=== PATIENT | female | born 1955 | race Caucasian/White ===

== ENCOUNTER → 2023-05-30 14:54 | Outpatient (REF) | payer MEDICARE, OTHER, SELFPAY | LOC: DHCBS MAIN 14:54 | PROVIDERS: ATTENDING PHYSICIAN Internal Medicine Interventional Cardiology; FAMILY PHYSICIAN Family Medicine | DX: I34.1 Nonrheumatic mitral (valve) prolapse (principal) | CPT/HCPCS: 93306 ==

== ENCOUNTER → 2023-08-10 10:55 | Outpatient (REF) | payer MEDICARE, OTHER, SELFPAY | LOC: HWRAD 10:55 | PROVIDERS: ATTENDING PHYSICIAN Internal Medicine Rheumatology; FAMILY PHYSICIAN Family Medicine | DX: M47.816 Spondylosis without myelopathy or radiculopathy, lumbar region (principal); M81.0 Age-related osteoporosis without current pathological fracture; R29.890 Loss of height | CPT/HCPCS: 72070; 72110 ==

== ENCOUNTER 2023-09-07 06:09 | Outpatient (RCR) | payer MEDICARE, OTHER, SELFPAY | END 2023-09-07 23:59 | disposition home or self-care (01) | LOC: RPT 06:09 | PROVIDERS: ATTENDING PHYSICIAN Internal Medicine Gastroenterology; FAMILY PHYSICIAN Family Medicine | DX: N39.41 Urge incontinence (principal); N39.3 Stress incontinence (female) (male); K59.00 Constipation, unspecified; Z73.6 Limitation of activities due to disability; M62.89 Other specified disorders of muscle; R27.8 Other lack of coordination; M62.81 Muscle weakness (generalized) | CPT/HCPCS: 97162; 97530 ==

== ENCOUNTER → 2023-09-14 06:29 | Day surgery (SDC) | payer MEDICARE, OTHER, SELFPAY | LOC: GI 06:29 | PROVIDERS: ATTENDING PHYSICIAN Internal Medicine Gastroenterology | DX: Z12.11 Encounter for screening for malignant neoplasm of colon (principal); K63.5 Polyp of colon; K64.8 Other hemorrhoids; K29.50 Unspecified chronic gastritis without bleeding; K44.9 Diaphragmatic hernia without obstruction or gangrene; K31.89 Other diseases of stomach and duodenum; R13.10 Dysphagia, unspecified | CPT/HCPCS: 45380; 43239; 88305; 88341; 88342 ==

== ENCOUNTER 2023-10-06 06:34 | Outpatient (RCR) | payer MEDICARE, OTHER, SELFPAY | END 2023-10-06 23:59 | disposition home or self-care (01) | LOC: RPT 06:34 | PROVIDERS: ATTENDING PHYSICIAN Internal Medicine Gastroenterology; FAMILY PHYSICIAN Family Medicine | DX: N39.41 Urge incontinence (principal); N39.3 Stress incontinence (female) (male); K59.00 Constipation, unspecified; Z73.6 Limitation of activities due to disability; M62.89 Other specified disorders of muscle; R27.8 Other lack of coordination; M62.81 Muscle weakness (generalized) | CPT/HCPCS: 97014; 97112; 97140; 97530 ==

== ENCOUNTER 2023-10-27 09:14 | Outpatient (RCR) | payer MEDICARE, OTHER, SELFPAY | END 2023-10-27 23:59 | disposition home or self-care (01) | LOC: RPT 09:14 | PROVIDERS: ATTENDING PHYSICIAN Internal Medicine Gastroenterology; FAMILY PHYSICIAN Family Medicine | DX: N39.41 Urge incontinence (principal); N39.3 Stress incontinence (female) (male); K59.00 Constipation, unspecified; M62.89 Other specified disorders of muscle; M62.81 Muscle weakness (generalized); R27.8 Other lack of coordination | CPT/HCPCS: 97014; 97112; 97530 ==

== ENCOUNTER 2023-12-18 15:29 | Emergency (ER) | payer MEDICARE, OTHER, SELFPAY ==
[2023-12-18 15:50] VITALS: BP 135/75
[2023-12-18 16:24] LABS: % Basophils 0.5 % (0-2); % Eosinophils 2.3 % (0-6); % Immature Granulocytes 0.3 % (0-0.5); % Lymphocytes 14.3 % (20.5-51.1); % Monocytes 8.9 % (1.7-9.3); % Neutrophils 73.7 % (42.2-75.2); Absolute Basophils 0.1 10^3/uL (0-0.2); Absolute Eosinophils 0.2 10^3/uL (0-0.7); Absolute Lymphocytes 1.3 10^3/uL (1.2-3.4); Absolute Monocytes 0.8 10^3/uL (0.1-0.6); Absolute Neutrophils 6.9 10^3/uL (1.4-6.5); Hematocrit 31.3 % (37.0-47.0); Hemoglobin 10.3 g/dL (12.0-16.0); Mean Corp Hgb Conc. 32.9 g/dL (33.0-37.0); Mean Corpuscular Hgb 27.3 pg (27.0-31.0); Mean Platelet Volume 9.1 fL (7.4-10.4); Nucleated Red Blood Cells % 0 %; Platelet Count 359 10^3/uL (130-400); Red Blood Cell Count 3.77 10^6/uL (4.20-5.40); White Blood Cell Count 9.3 10^3/uL (4.8-10.8)
[2023-12-18 16:34] LABS: ALT (SGPT) < 10 U/L (0-35); AST (SGOT) 22 U/L (14-36); Albumin 3.9 g/dl (3.5-5.0); Alkaline Phosphatase 75 U/L (38-126); Blood Urea Nitrogen 18 mg/dl (7-17); Calcium 9.5 mg/dl (8.4-10.2); Carbon Dioxide 26 mmol/L (22-30); Chloride 100 mmol/L (98-107); Glucose 123 mg/dl (70-99); Potassium 4.5 mmol/L (3.5-5.1); Sodium 137 mmol/L (135-145); Total Bilirubin 0.5 mg/dl (0.2-1.3); eGFR > 60.00
[2023-12-18] MEDS: NSS 1000 IV (17:37)
[2023-12-18] MEDS: TORADOL 15 MG IV (17:37)
[2023-12-18 17:53] LABS: Urine Albumin Negative (Neg - Trace); Urine Bilirubin Negative (Negative); Urine Character Clear (Clear); Urine Color Straw; Urine Glucose Negative (Negative); Urine Ketone Negative (Negative); Urine Leukocyte 1+ (Negative); Urine Nitrite Negative (Negative); Urine Occult Blood 3+ (Negative); Urine Specific Gravity 1.005 (<1.030); Urine Urobilinogen Negative (Neg - 1+)
--- NOTE | 2023-12-18 18:19 | ED.GENMED ---
History of Present Illness
General
Chief Complaint: Flank Pain
Source: patient, spouse and family
Exam Limitations: none
Time Seen by Provider: 12/18/23 16:43
Nursing documentation reviewed up to this point in time: agreed with
History of Present Illness
History of Present Illness:
68-year-old female past medical history of kidney stones presenting to the emergency department today with concerns of left flank pain over the past 2 weeks that was intermittent. Saw her primary care doctor and had an outpatient ultrasound ordered
that showed severe left-sided hydro with potential 0.8 cm stone to the distal ureter. She denies any fevers chest pain shortness of breath no vomiting some intermittent nausea. Pain has been fluctuating has had some ongoing the day today. Last
urologic procedure was at least 30 years ago.
Review of Systems
Review of Systems
Allergies reviewed?: Yes
All Other Systems: ROS reviewed and negative except as documented in HPI and ROS
Phy Exam
Physical Exam
Physical Exam:
GENERAL: Alert , in no apparent distress
EYE: pupils equal and reactive
NECK: Supple, no significant adenopathy.
ENT: o/p clr, mmm.
CARDIAC: Regular rate and rhythm .
LUNGS: Clear breath sounds bilaterally, no acute respiratory distress, no wheezes/rales/rhonchi
ABDOMEN: Soft, without focal tenderness, no r/g, no cvat
NEUROLOGICAL: Alert and oriented, no focal neuro deficits
SKIN: Warm and dry, skin intact.
MUSCULOSKELETAL: No edema, well perfused.
PSYCH: Normal and appropriate interaction.
Course
Orders/Labs/Results
Orders:
Orders
12/18/23 16:01
Complete Blood Count/With Diff Urgent
Comprehensive Metabolic Panel Urgent
12/18/23 17:16
0.9% Sodium Chloride 1000 ml [Nss] 1,000 ml IV BOLUS
Ketorolac [Toradol] 15 mg IV NOW STA
12/18/23 17:25
CT Abd/pel Without Iv Or Oral Urgent
Comment:
Reason For Exam: left sided stone
12/18/23 17:41
Urinalysis Reflex To Culture Urgent
Date Specimen was Collected: 12/18/23
Time Specimen was Collected: 17:15
Urine Microscopic Reflex Cult Urgent
Urine Culture Urgent
HEAVENLY Source: U
Specimen Description:
Date Specimen was Collected: 12/18/23
Time Specimen was Collected: 17:15
Abnormal Lab Results
12/18/23 12/18/23
16:01 17:41
RBC 3.77 L 10^6/uL
(4.20-5.40)
Hgb 10.3 L g/dL
(12.0-16.0)
Hct 31.3 L %
(37.0-47.0)
MCHC 32.9 L g/dL
(33.0-37.0)
Absolute Neuts (auto) 6.9 H 10^3/uL
(1.4-6.5)
Absolute Monos (auto) 0.8 H 10^3/uL
(0.1-0.6)
Lymphocytes % 14.3 L %
(20.5-51.1)
BUN 18 H mg/dl
(7-17)
Glucose 123 H mg/dl
(70-99)
Ur Occult Blood Reflex 3+ A
(Negative)
Leukocyte Esterase Rfl 1+ A
(Negative)
12/18/23 16:01
12/18/23 16:01
Vital Signs
Initial and Last Documented VS:
Initial Vital Signs
Temp Pulse Resp BP Pulse Ox
98.1 F 81 16 135/75 98
12/18/23 15:50 12/18/23 15:50 12/18/23 15:50 12/18/23 15:50 12/18/23 15:50
Last Documented Vital Signs
Temp Pulse Resp BP Pulse Ox
98.1 F 81 16 135/75 98
12/18/23 15:50 12/18/23 15:50 12/18/23 15:50 12/18/23 15:50 12/18/23 15:50
MDM/Problems Addressed
MDM/Problems Addressed:
68-year-old female presenting to the emergency flank pain over the past 2 weeks. Outpatient ultrasound showing severe left hydro and 8 mm distal ureteral stone. Upon arrival vital signs are normal. Patient afebrile and generally well-appearing no
reproducible discomfort to the abdomen and flank. Labs showing slightly elevated BUN to creatinine ratio. She was given fluids as well as Toradol for pain. Patient comfortable throughout ER stay. Case discussed with urology they recommended CT
scan for further clarification. CT scan confirming left-sided 7 mm stone with severe hydronephrosis. Labs without significant white count normal creatinine level and no evidence of urinary tract infection on the urinalysis. Case discussed with
urology they claimed that outpatient trial would be appropriate. Patient's symptoms well-controlled here return precautions given. Does appear stable for outpatient management.
*Critical Care Note
Total Time (30-74mins, 75-104mins- exclusive of procedures): Not Applicable
ED Attending Note
-
Portions of this chart may have been created with voice recognition software.� Occasional wrong word or��sound alike� substitutions may have occurred due to the inherent limitations of voice recognition software.
Discharge Plan
Departure
Patient Disposition: Home (Routine Discharge)
Date of Disposition: 12/18/23
Time of Disposition: 19:30
Patient with high blood pressure during this ER visit?: No
Condition: Good
Covid-19: Not Applicable
Discharge Problem:
Hydronephrosis with ureteral calculus
Instructions: Kidney Stones (DC), Flank Pain (DC)
Prescriptions:
New
tamsulosin [Flomax] 0.4 mg capsule
0.4 mg PO DAILY Qty: 7 0RF
Referrals:
Cisco Solis MD [Active] - Tomorrow
Tiny Howell DO [Family Provider] -
Activity Restrictions/Additional Instructions:
You came to the emergency department today with concerns of a obstructing kidney stone. Please take the prescribed Flomax once daily and pain medication at home. Please follow closely with urology. Please call the office tomorrow morning to
schedule an appointment. If symptoms are progressing or he develop any fevers at home return to the emergency department immediately for further assessment.
Interventions
Interventions:
*Risk Screen - Suicide Last Done: 12/18/23 17:45
*General Assessment Last Done: 12/18/23 17:45
*Neglect/Abuse Screening Last Done: 12/18/23 18:58
ED- Fall Risk Assessment Last Done: 12/18/23 17:45
Discharge Date and Time
Print Language: UPPER SORBIAN
[2023-12-18 18:33] LABS: Urine Red Blood Cell 0-2 /HPF (0-2)
[2023-12-18 19:56] VITALS: BP 130/70
== END 2023-12-18 19:59 | disposition home or self-care (01) ==
LOC: EMR 15:29
PROVIDERS: Physician Assistant; Student in an Organized Health Care Education/Training Program; EMERGENCY PHYSICIAN Student in an Organized Health Care Education/Training Program; FAMILY PHYSICIAN Family Medicine
DX: N13.2 Hydronephrosis with renal and ureteral calculous obstruction (principal); E07.9 Disorder of thyroid, unspecified; Z87.442 Personal history of urinary calculi; Z88.6 Allergy status to analgesic agent; Z88.0 Allergy status to penicillin
CPT/HCPCS: 99284; 96374; 96361 ×2; 74176; 76770; 80053; 81003; 81015; 85025; 87086

== ENCOUNTER 2023-12-21 06:28 | Day surgery (SDC) | payer MEDICARE, OTHER, SELFPAY ==
[2023-12-21] VITALS (7 sets, daily range): BP systolic 102–133; BP diastolic 64–76; BMI 27.5
[2023-12-21] MEDS: NORMOSOL-R/PLASMALYTE-A 1000 IV (08:56)
== END 2023-12-21 12:53 | disposition home or self-care (01) ==
LOC: SDS 06:28
PROVIDERS: ATTENDING PHYSICIAN Specialist
DX: N20.1 Calculus of ureter (principal); N28.89 Other specified disorders of kidney and ureter
CPT/HCPCS: 52354; 52356; 88305; 74018; 76000; 93005; C1894; C2617

== ENCOUNTER → 2024-01-22 08:02 | Outpatient (REF) | payer MEDICARE, OTHER, SELFPAY | LOC: HWRAD 08:02 | PROVIDERS: ATTENDING PHYSICIAN Specialist; FAMILY PHYSICIAN Family Medicine | DX: N28.89 Other specified disorders of kidney and ureter (principal) | CPT/HCPCS: 74178; Q9967 ==

== ENCOUNTER 2024-03-14 02:28 | Inpatient (IN) | payer MEDICARE, OTHER, SELFPAY ==
[2024-03-13] VITALS (8 sets, daily range): BP systolic 76–92; BP diastolic 38–58; BMI 26.7
[2024-03-13] MEDS: NSS 1000 IV ×2 (22:02→23:05)
[2024-03-13 22:13] LABS: Urine Albumin Trace (Neg - Trace); Urine Bilirubin Negative (Negative); Urine Character Clear (Clear); Urine Color Yellow; Urine Glucose Negative (Negative); Urine Ketone Negative (Negative); Urine Leukocyte Negative (Negative); Urine Nitrite Negative (Negative); Urine Occult Blood 3+ (Negative); Urine Urobilinogen Negative (Neg - 1+)
--- NOTE | 2024-03-13 22:16 | ED.GENMED ---
History of Present Illness
General
Chief Complaint: Fainting/Passed Out
Source: patient and family (daughter)
Exam Limitations: none
Time Seen by Provider: 03/13/24 21:48
History of Present Illness
History of Present Illness:
This is a 68 year old female that is brought in by ambulance with c/o lethargy and low BP. Daughter states that she had her first treatment of ECP yesterday at [facility]. States that she took an Oxycodone 10 mg at 2pm and layed down. States that at 7p,
she was not really awake but was agitated. States that she was also sweating and not forming her words. States that they got her up to the BR and she was incont of her urine. States that they called 911 as she had difficulty standing and her BP was
low when they got there. States that she has had back, hip and groin pain. States that her temp at home was 100.7 with chills. Told her family today that her heart felt like it was racing and that she has been SOB but this is ongoing. States that
her balance has been off. States that she also had some blood clots in her urine 2 days ago. Denies any abd pain, nausea, vomiting, diarrhea, headache, dizziness, urinary burning.
Past History
Past History
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
ED Past Surgical History: Urological (Left Nephrectomy ) and Other (Partial Thyroidectomy)
Social History
Tobacco: Non-smoker
Alcohol: None
Personal:
Living: with family
Review of Systems
Review of Systems
All Other Systems: ROS reviewed and negative except as documented in HPI and ROS
Constitutional: Reports fever, chills and other (Sweats)
EENT: Reports no symptoms
Respiratory: Reports trouble breathing (SOB that has been ongoing); Denies cough
Cardiac: Reports other ([place] like her heart was racing); Denies chest pain
ABD/GI: Reports no symptoms; Denies abdominal pain, nausea, vomiting or diarrhea
: Reports other (Blood clots in urine 2 days ago); Denies dysuria
Musculoskeletal: Reports no symptoms
Skin: Reports no symptoms
Neurological: Reports other (Balance was off holding on to things); Denies dizzy or headache
Psychiatric: Reports no symptoms
Phy Exam
General Physical Exam
General Presentation: no apparent distress
General age: appears stated age
General Skin: warm and dry
General Habitus: normal
General Mental: other (Lethargic. Will wake up but falls easily back to sleep)
General Hydration: dry mucous membranes
ENT Exam
ENT Exam: TM's normal, pharynx normal and neck supple
Eye Exam
Eye Exam: EOMI
Cardiovascular Exam
Cardiovascular Exam: regular rate/rhythm, no edema, no murmur and normal peripheral pulses
Pulmonary Exam
Pulmonary Exam: lungs clear, no respiratory distress, no rales, chest non tender, no crackles, no rhonchi, no wheezing and no cough
Gastrointestinal Exam
Gastrointestinal Exam: normal bowel sounds, non tender, soft, no organomegaly, no pulsatile mass and non distended
Abdominal Scars: vertical midline (With glue noted middle of incision. Clean and dry. )
Musculoskeletal Exam
Musculoskeletal Exam: full ROM and no edema
Skin Exam
Skin Exam: normal color, warm/dry, no rash and no petechia
Psychiatric Exam
Psychiatric Exam: other (Lethargic opens eye to name and will answer some questions but falls back to sleep)
Sepsis
Sepsis Screening
Sepsis Assessment: Sepsis
Sepsis Screen
Sepsis Screen: Sepsis
Date: 03/14/24
Time: 01:24
Course
Orders/Labs/Results
Orders:
Orders
03/13/24 21:35
Electrocardiogram (*1) Urgent
Reason for Study: Syncope
Cardiac Monitoring- Treatment ONCE
EKG- Treatment ONCE
03/13/24 21:37
IV Insert/Care/Rem.- Treatment PRN
O2 Therapy [RESP] Urgent
Titrate/Wean O2 to maintain O2 sat greater than (%): 93
Special Instructions: TO MAINTAIN CONTINUOUS O2 SATS > OR = 93%
Pulse Ox/cont/shift [RESP] Urgent
Quantity: 1
Special Instructions: CONTINUOUS
03/13/24 21:59
0.9% Sodium Chloride 1000 ml [Nss] 1,000 ml IV BOLUS
03/13/24 22:00
CMP [Comprehensive Metabolic Panel] Urgent
COVID-19 Antigen Urgent
Source: Nasal Swab
Complete Blood Count/With Diff Urgent
Lactic Acid Q4H
Comment: ON ICE, CANCEL 2ND ORDER IF FIRST LACTIC ACID LEVEL <2
Urinalysis Reflex To Culture Urgent
Date Specimen was Collected: 03/13/24
Time Specimen was Collected: 21:51
Urine Microscopic Reflex Cult Urgent
Blood Culture Urgent
HEAVENLY Source: Blood/Venous
Specimen Description:
Blood Culture Urgent
HEAVENLY Source: Blood/Venous
Specimen Description:
Urine Culture Urgent
HEAVENLY Source: U
Specimen Description:
Date Specimen was Collected: 03/13/24
Time Specimen was Collected: 21:51
03/13/24 22:02
Influenza A+B Rapid Molecular Urgent
HEAVENLY Source: Nasal Swab
Specimen Description:
03/13/24 22:15
Acetaminophen 1000MG/100Ml [Ofirmev] 1,000 mg in 100 ml IV ONCE
Acetaminophen IV Indication:: ED Narcotic Naive Pt-ONCE
03/13/24 22:18
CT Head W/o Iv Contrast Urgent
Comment:
Reason For Exam: Difficulty forming words
03/13/24 22:22
Acetaminophen [Tylenol] 500 mg .ROUTE .STK-MED ONE
Acetaminophen [Tylenol] 500 mg PO NOW STA
03/13/24 22:28
Troponin I Urgent
03/13/24 23:00
Flush (0.9% Sodium Chloride) [Flush (Nss)] See Dose Instructions IV PER PROTOCOL
03/13/24 23:04
0.9% Sodium Chloride 1000 ml [Nss] 1,000 ml IV BOLUS
03/13/24 23:15
Cefepime HCl [Maxipime] 2,000 mg IV NOW STA
03/13/24 23:29
NORepinephrine 4 MG/250 ML [Levophed] 4 mg in 250 ml IV NOW
Initial dose in mcg/min, then titrate:: 5
Titrate to keep:: MAP > 65 mmHg
Titrate by mcg/min:: 1-2 mcg/min
Frequency of titrations (minutes):: 5
Maximum dose in ICU in mcg/min:: 30
Maximum dose in IMU in mcg/min:: 8
Maximum dose in IVU in mcg/min:: 4
Begin to taper infusion when:: Remained at goal for 4hrs
Taper by mcg/min:: 1-2 mcg/min
Frequency of taper (minutes) if patient maintains goal:: 30
Taper to off?: Yes
If infusion off & no longer maintaining goal:: Contact Provider
03/13/24 23:30
NORepinephrine 4 MG/250 ML [Levophed] 4 mg in 250 ml .ROUTE .STK-MED
Sterile Water [Sterile Water For Injection] 20 ml .ROUTE .STK-MED
03/14/24 00:00
CR Chest - 2 Views Urgent
Reason For Exam: Fever, Sepsis
03/14/24 00:09
Oxycodone [Roxicodone] 5 mg PO NOW STA
03/14/24 00:45
CT Abd/pel Without Iv Or Oral Urgent
Reason For Exam: Flank Pain, Hematuria, Fever
03/14/24 01:45
Lactic Acid Q4H
Comment: ON ICE, CANCEL 2ND ORDER IF FIRST LACTIC ACID LEVEL <2
Abnormal Lab Results
03/13/24
22:00
WBC 44.0 H* 10^3/uL
(4.8-10.8)
RBC 3.69 L 10^6/uL
(4.20-5.40)
Hgb 9.5 L g/dL
(12.0-16.0)
Hct 31.6 L %
(37.0-47.0)
MCH 25.7 L pg
(27.0-31.0)
MCHC 30.1 L g/dL
(33.0-37.0)
RDW 16.9 H %
(11.5-14.5)
Abs Immat Gran (auto) 1.1 H 10^3/uL
(0-0.05)
Absolute Neuts (auto) 37.8 H 10^3/uL
(1.4-6.5)
Absolute Monos (auto) 2.5 H 10^3/uL
(0.1-0.6)
Immature Gran % 2.5 H %
(0-0.5)
Neutrophils % 86.0 H %
(42.2-75.2)
Lymphocytes % 4.4 L %
(20.5-51.1)
Sodium 134 L mmol/L
(135-145)
Chloride 96 L mmol/L
(98-107)
BUN 24 H mg/dl
(7-17)
Creatinine 1.4 H mg/dL
(0.6-1.0)
Calcium 11.6 H mg/dl
(8.4-10.2)
Alkaline Phosphatase 186 H U/L
(38-126)
Albumin 3.2 L g/dl
(3.5-5.0)
Ur Occult Blood Reflex 3+ A
(Negative)
Urine RBC 26-30 A /HPF
(0-2)
Urine Bacteria (Reflex) Moderate A
(Negative)
03/13/24 22:00
03/13/24 22:00
Leukocytosis ( daughter states her WBC were 51 yesterday), H/H low, Anemic, Chloride slightly low. Dehydration. Calcium slightly elevated. Alk phos elevation. Albumin low. Urine negative for infection. COVID and Influenza negative, Lactic acid 2.0
Vital Signs
Initial and Last Documented VS:
Initial Vital Signs
Temp Pulse Resp BP Pulse Ox
101.2 F H 110 18 89/58 94
03/13/24 21:40 03/13/24 21:40 03/13/24 21:40 03/13/24 21:40 03/13/24 21:40
Last Documented Vital Signs
Temp Pulse Resp BP Pulse Ox
99.4 F 83 14 95/46 92
03/13/24 23:41 03/14/24 01:00 03/14/24 01:00 03/14/24 01:00 03/14/24 01:00
Benefits Advisor consulted with Physician
Benefits Advisor consulted with physician?: Yes
Name of Physician Consulted: Dr. Livingston
MDM/Problems Addressed
Differential Diagnosis Includes:
COVID, Neutropenic fever,
MDM/Problems Addressed:
This is a 68 year old female that is brought in by ambulance with c/o fever, Lethargic and Urinary incontinence. Told that patient has her first chemo treatment yesterday at [facility].
Will check labs, give IV fluids. get urine and Tylenol for fever. .
Back into see patient and family. Explained that the patient would be admitted as her BP is to low and she was very lethargic. This may all be related to her chemo. Will start on antibiotics and admit.
Chronic conditions affecting care: Cancer
Acute Exacerbation and/or Progression of Chronic Illness: Cancer
*Radiology
Radiology exam reviewed: preliminary read by ED provider (Chest- Negative for active disease. ) and radiology read reviewed (CT head-No acute intracranial abnormality noted)
*Pulse Oximetry
Patient hypoxic: no
*EKG
Interpreted by ED Provider?: Yes
Heart Rate: 109
Rate: tachycardiac
Rhythm: sinus
[place]: normal axis
Interval: normal interval
QRS Pattern: normal QRS
Ischemia: no ischemia
*Cannoneer Interpretation
Rate: tachycardiac
Heart Rate: 100
Rhythm: sinus tachycardia
*Critical Care Note
Total Time (30-74mins, 75-104mins- exclusive of procedures): Not Applicable
ED Attending Note
-
Portions of this chart may have been created with voice recognition software.� Occasional wrong word or��sound alike� substitutions may have occurred due to the inherent limitations of voice recognition software.
Discharge Plan
Departure
Patient Disposition: Admit
Date of Disposition: 03/13/24
Time of Disposition: 23:20
Admit to: ICU
Presentation/result/management discussed w/ accepting MD/DO: Hospitalist
Patient with high blood pressure during this ER visit?: No
Condition: Good
Covid-19: Negative COVID-19
Discharge Problem:
Fever and chills, Acute hypotension, Sepsis
Prescriptions:
No Action
docusate sodium [Stool Softener] 100 mg Capsule
100 mg PO DAILYPRN PRN (Reason: constipation)
polyethylene glycol 3350 [Miralax] 17 gram/dose Powder
4 g PO DAILYPRN PRN (Reason: constipation)
oxycodone 5 mg Tablet
10 mg PO Q8HPRN PRN (Reason: moderate to severe pain)
acetaminophen 500 mg Tablet
500 mg PO Q6HPRN PRN (Reason: mild pain)
Referrals:
Tiny Howell DO [Family Provider] -
Interventions
Interventions:
*Risk Screen - Suicide Last Done: 03/13/24 21:40
*General Assessment Last Done: 03/13/24 21:40
*Neglect/Abuse Screening Last Done: 03/13/24 21:40
ED- Fall Risk Assessment Last Done: 03/13/24 23:11
*ED COVID-19 Vaccine History Last Done: 03/13/24 21:40
ED- Neurological Assessment Last Done: 03/13/24 23:11
Discharge Date and Time
Print Language: MALIAN
[2024-03-13 22:17] LABS: Hematocrit 31.6 % (37.0-47.0); Hemoglobin 9.5 g/dL (12.0-16.0); Mean Corp Hgb Conc. 30.1 g/dL (33.0-37.0); Mean Corpuscular Hgb 25.7 pg (27.0-31.0); Mean Corpuscular Volume 85.6 fL (81.0-99.0); Mean Platelet Volume 8.4 fL (7.4-10.4); Platelet Count 397 10^3/uL (130-400); Red Blood Cell Count 3.69 10^6/uL (4.20-5.40); Red Cell Dist. Width 16.9 % (11.5-14.5)
[2024-03-13 22:19] LABS: Urine Red Blood Cell 26-30 /HPF (0-2); Urine Squamous Cell 0-2 /LPF (Few)
[2024-03-13 22:20] LABS: Urine Bacteria Moderate (Negative); Urine White Cell 0-2 /HPF (0-5)
[2024-03-13] MEDS: TYLENOL 500 MG PO (22:23)
[2024-03-13 22:29] LABS: % Basophils 0.4 % (0-2); % Immature Granulocytes 2.5 % (0-0.5); % Lymphocytes 4.4 % (20.5-51.1); % Monocytes 5.7 % (1.7-9.3); Absolute Basophils 0.2 10^3/uL (0-0.2); Absolute Eosinophils 0.5 10^3/uL (0-0.7); Absolute Immature Granulocytes 1.1 10^3/uL (0-0.05); Absolute Lymphocytes 1.9 10^3/uL (1.2-3.4); Absolute Monocytes 2.5 10^3/uL (0.1-0.6); Absolute Neutrophils 37.8 10^3/uL (1.4-6.5); Nucleated Red Blood Cells % 0 %
[2024-03-13 22:32] LABS: ALT (SGPT) 18 U/L (0-35); AST (SGOT) 29 U/L (14-36); Albumin 3.2 g/dl (3.5-5.0); Alkaline Phosphatase 186 U/L (38-126); Blood Urea Nitrogen 24 mg/dl (7-17); COVID-19 Antigen Negative (Negative); Calcium 11.6 mg/dl (8.4-10.2); Carbon Dioxide 27 mmol/L (22-30); Chloride 96 mmol/L (98-107); Estimated Creatinine Clearance 35 ml/min; Glucose 76 mg/dl (70-99); Potassium 4.9 mmol/L (3.5-5.1); Sodium 134 mmol/L (135-145); Total Bilirubin 0.5 mg/dl (0.2-1.3); Total Protein 6.5 g/dl (6.3-8.2); eGFR 40.98
[2024-03-13 23:07] LABS: Troponin I < 0.012 ng/ml
--- NOTE | 2024-03-13 23:10 | EDRN ---
Patient back from CT, her BP is trending down now that fluids are completed, informed PENELOPE Bledsoe who is back in at bedside talking with patient and family, fluids hung on patient.
[2024-03-13] MEDS: LEVOPHED 250 IV (23:34)
[2024-03-13] MEDS: MAXIPIME 2000 MG IV (23:37)
[2024-03-14] VITALS (102 sets, daily range): BP systolic 77–131; BP diastolic 42–65; BMI 25.4
--- NOTE | 2024-03-14 | EDRN ---
Patient complaining of pain, it is time for her normal medications to be given she has been taking 10mg of her oxycodone, with low blood pressure, Ladi MAGAZINE SUPERVISOR concerned so will give her 5mg at this time, monitoring her BP closely and titrating
levophed appropriately.
[2024-03-14] MEDS: ROXICODONE 5 MG PO (00:11)
--- NOTE | 2024-03-14 01:26 | EDRN ---
While sleeping, patients 02 drops to 88%, placed 2L nasal canula on her.
--- NOTE | 2024-03-14 02:02 | EDRN ---
Patient resting with daughter at bedside waiting on admission
--- NOTE | 2024-03-14 02:18 | HPS.HSE ---
Family Physician
-
Family Physician: Tiny Howell
Chief Complaint
-
Lethargy, AMS
History of Present Illness
Patient is a 68y F with PMH significant for metastatic renal cell carcinoma s/p L nephrectomy and newly on chemotherapy who presents to ED for evaluation of fever, lethargy and diaphoresis. History obtained from patient and family at the
bedside. Patient was recently diagnosed with L RCC and underwent L nephrectomy at [facility] in January. She was recently started on systemic chemotherapy due to evidence of metastatic disease - specifically in the L pelvis / hip. She had her first
session of chemo yesterday (03/12/24).
Today patient was feeling well in the morning. She became tired in the afternoon and started to nap around 2 PM. She went to bed around 4 PM and fell into a deeper sleep. Family noted that her breathing seemed to change and she was very still.
Later in the afternoon patient woke agitated. She attempted to stand on her own but her legs gave out and she had to be supported by family members. She was incontinent of a large amount of urine at that time. Her speech seemed thick and she was
confused. She was profusely diaphoretic. Patient was helped to the toilet. When she sat down on the toilet she passed out / became unresponsive.
Her temperature at home was 100.8.
EMS was called and patient was brought to the ED for further evaluation.
In the ED, patient is more awake and alert. She has no recall of the above events and states that she 'woke up' here in the ED.
Daughter notes that patient's prior surgery was complicated by post-op hypotension.
At that time she was similarly diaphoretic, confused, etc.
Patient denies any recent symptoms of sore throat, cough, N/V/D, dysuria, etc.
Medical History
Past Medical History
Past Medical History: Reports Other
Additional Past Medical History:
Metastatic Renal Cell Carcinoma
Nephrolithiasis
Past Surgical History: Reports Other
Additional Past Surgical History:
Left Nephrectomy
Cystoscopies / Lithotripsy
Partial Thyroidectomy (benign mass)
Social History
Tobacco: Non-smoker
Alcohol: None
Drug: None
Family History
Family History: Other (Mother: DM, CAD, Dementia Father: Hypertension)
Allergies / Home Medications
Allergies reflects when Allergies were last updated in [employer].
Home Medications with original date entered in [employer]
Allergy/Medication List:
Allergies
Allergy/AdvReac Type Severity Reaction Status Date / Time
Penicillins Allergy Swelling Verified 03/13/24 21:51
Home Medications
acetaminophen 500 mg tablet 500 mg PO Q6HPRN PRN mild pain 03/13/24
docusate sodium 100 mg capsule (Stool Softener) 100 mg PO DAILYPRN PRN constipation 03/13/24
oxycodone 5 mg tablet 10 mg PO Q8HPRN PRN moderate to severe pain 03/13/24
polyethylene glycol 3350 17 gram/dose oral powder (Miralax) 4 g PO DAILYPRN PRN constipation 03/13/24
Review of Systems
-
History Source: Patient and Family
A 12 point ROS was completed and negative except as noted: Yes
Constitutional: Reports Fever, Fatigue, Night Sweats and Chills
EENT: Denies Sore Throat
Respiratory: Reports Trouble Breathing; Denies Cough
Cardiac: Denies Chest Pain or Palpitations
Abdomen/GI: Reports Abdominal Pain; Denies Nausea, Vomiting, Diarrhea, Bloody Stools or Black Stools
: Denies Dysuria or Frequency
Musculoskeletal: Reports Joint Pain (L groin / hip); Denies Edema
Neurological: Reports Dizzy and Weakness; Denies Headache
Psych: Denies Depression or Anxiety
Physical Exam
Vital Signs
Vital Signs
Temp Pulse Resp BP Pulse Ox
99.4 F 75 13 87/48 94
03/13/24 23:41 03/14/24 02:00 03/14/24 02:00 03/14/24 01:45 03/14/24 02:00
Physical Exam
General: Other (Pale, diaphoretic 68y F in mild distress due to pain / fatigue.)
HEENT: PERRLA and Other (Dry MM. Neck supple.)
Respiratory: Clear; No Wheezes, Rales or Rhonchi
Cardiac: S1/S2 and Regular Rhythm; No Murmur
GI: Soft and Other (Tenderness along L abdomen without rebound or guarding. Pos bowel sounds. Incisions well-healed.)
Musculoskeletal: No Clubbing, No Cyanosis and No Edema
Neuro: Other (Lethargic - but arousable. Answers questions and follows commands but falls asleep quickly when undisturbed.)
Laboratory Results
-
03/13/24 22:00
03/13/24 22:00
Laboratory Results
Lactic Acid 2.0 mmol/L (0.7-2.0) 03/13/24 22:00
Total Bilirubin 0.5 mg/dl (0.2-1.3) 03/13/24 22:00
AST 29 U/L (14-36) 03/13/24 22:00
ALT 18 U/L (0-35) 03/13/24 22:00
Alkaline Phosphatase 186 U/L (38-126) H 03/13/24 22:00
Troponin I < 0.012 ng/ml 03/13/24 22:28
Impression/Plan
-
A/P: Patient is a 68y F with PMH significant for metastatic renal cell cancer who presents to ED for evaluation of fever and change in mental status.
Shock / SIRS
- Admit to ICU for further evaluation and treatment.
- Patient presents with marked leukocytosis (was 51 yesterday per daughter - though no report of GCSF, etc as only received chemo dose yesterday as well).
- Fever, tachycardia, tachypnea.
- Hypotension without adequate response to fluids and requiring pressor support.
- No evident source of infection thus far by UA, CXR, CT A/P, etc.
- ? sepsis versus chemo effect versus primary malignancy versus TLS, etc.
- Empiric abx coverage for now pending culture data.
- Aggressive IVF support + pressors to maintain adequate perfusion.
- Follow for clinical improvement.
- Follow fever curve and monitor for any new / focal symptoms, etc.
- Water And Gas Helper and HemeOnc evaluations for additional recommendations.
PRINCESS v CKD
- SCr = 1.4 compared to prior baseline of 0.9, but this was pre-nephrectomy value.
- IVFs / restore perfusion as noted.
- Follow renal function for changes / to establish current baseline.
Hypercalcemia
- Secondary to hypovolemia v TLS v malignancy.
- IVF as noted above.
- Check Phos and Uric Acid.
- TLS less likely, but possible given disease burden.
Anemia
- Patient with persistent anemia since nephrectomy.
- Current baseline 9-10 per family.
- Follow H&H and consider transfusion if decreasing hemoglobin and / or persistent hypotension.
DVT Prophylaxis: Lovenox
Code Status: DNR
[2024-03-14 03:17] LABS: Phosphorus 3.4 mg/dl (2.5-4.5); Uric Acid 7.2 mg/dl (2.5-6.2)
[2024-03-14 05:17] LABS: AST (SGOT) 30 U/L (14-36); Albumin 2.4 g/dl (3.5-5.0); Alkaline Phosphatase 147 U/L (38-126); Blood Urea Nitrogen 23 mg/dl (7-17); Carbon Dioxide 24 mmol/L (22-30); Chloride 104 mmol/L (98-107); Estimated Creatinine Clearance 46 ml/min; Sodium 135 mmol/L (135-145); Total Bilirubin 0.5 mg/dl (0.2-1.3); Total Protein 5.3 g/dl (6.3-8.2); eGFR 54.73
[2024-03-14 05:27] LABS: ALT (SGPT) 15 U/L (0-35); Calcium 10.4 mg/dl (8.4-10.2); Glucose 102 mg/dl (70-99); Magnesium 2.3 mg/dl (1.6-2.3); Phosphorus 4.5 mg/dl (2.5-4.5)
--- NOTE | 2024-03-14 05:30 | PTCARENOTE ---
Received pt from ED nurse via bed to ICU bed [id number]. Pt on levo gtt infusing a 7mcg/min via left peripheral IV site. Pt accompanied by daughter. Pt is A&Ox3, can make needs known, and can move all 4 extremities, Pt is NSR on tele monitor, has no
edema, and +pedal pulses bilaterally. Pt on RA satting at 95% pulse ox. On auscultation pt lungs sound clear. Pt's abdomen is round w/ hypoactive BS. Purewick placed and connected to suction due to incontinent episode earlier in the day. Pt has old
midline abdominal surgical wound with left lateral lap stab sites that are scabbed and DAVID.
[2024-03-14] MEDS: NSS 1000 IV ×3 (05:36→19:21)
[2024-03-14] MEDS: VANCOCIN 540 MG IV (05:37)
[2024-03-14 05:45] LABS: TSH Reflex To Free T4 2.41 uIU/ml (0.47-4.68)
--- NOTE | 2024-03-14 06:57 | W.PN.SEPSIS ---
Sepsis
Vital Signs
Temp Pulse Resp BP Pulse Ox
99.4 F 72 19 99/50 95
03/13/24 23:41 03/14/24 05:00 03/14/24 05:00 03/14/24 05:00 03/14/24 05:00
Physical Exam
Physical Exam:
A focused exam was performed after fluid resuscitation.
Capillary Refill
Bilateral Upper Extremity:
Pieter Time: Less than 3 sec
Bilateral Lower Extremity:
Pieter Time: Less than 3 sec
Pulse Evaluation
Bilateral Radial:
Pulse Evaluation: Present
Bilateral Dorsalis Pedis:
Pulse Evaluation: Present
--- NOTE | 2024-03-14 07:20 | PTCARENOTE ---
Received pt in bed with daughter present at the bedside. Daughter is a good historian and notified me that he father is having difficulty coping and accepting diagnosis and illness. Supportive care provided. Pt awake and alert with Norepinephrine @
7mcg/min via left AC#18 protective catheter. Right AC#20g protective catheter with 09.nss @150ml/hr and vanco loading dose. +pulses, no edema. Knee-hi scd's intact. Lungs CTA, RA pulse ox 94%. Hypoactive bsx4. Pt reports last BM Monday03/11/24. She
states she takes miralax daily and a prescribed stool softener at home. Was intolerant to the prescribed stool softener. Poor appetite. She only desires water. Oral mucosa dry. Importance of good nutrition reinforced. She verbalized her
understanding. 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 She was informed of the plan of care regarding tapering and titrating Norepinephrine drip. Monitoring her symptoms of pain and antibiotic administration. Understanding verbalized by pt and
daughter. Safe environment maintained. Will continue supportive care.
--- NOTE | 2024-03-14 07:20 | PTCARENOTE ---
Received pt in bed with daughter at the bedside. She has IVF as ordered and Levophed for MAP>65. Good peripheral pulses, no edema. Lungs CTA. Pulse ox 97%. Hypoactive BSX4. [place]. 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 She was informed of the
plan of care and pain management. Safe environment maintained.
--- NOTE | 2024-03-14 07:27 | CON.ONC ---
Impression
Impression
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
TME
Hypotension
Rule out sepsis
Pain syndrome with use of opiates
Anemia
Leukocytosis
Plan
Plan
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
Await cultures
Leukocytosis is likely reactive
Evaluate for substrate insufficiency as a cause of anemia superimposed on hematuria
Patient History
History of Present Illness
Patient is a 68-year-old female with metastatic transitional cell carcinoma. She has been suffering chronic pain due to pelvic metastases for which she takes regular oxycodone code own. She received her for initial cycle of Padcev/Keytruda for
palliative control on Monday. Yesterday she became less responsive and unable to ambulate. Family describes clinical circumstances consistent with toxic metabolic encephalopathy possibly with superimposed sepsis. Unlikely that her change in
mental status was related to medications given the temporal relationship to treatment.
Past-Medical/Surgical History
Past Medical history
Cancer (Ureteral TCC with mets to Cervical/pelvic floor) and Other (Headache, Renal calculus, )
Past Surgical History: Urological (Left Nephrectomy ) and (Partial Thyroidectomy)
Social History:
Tobacco: Non-smoker
Alcohol: None
Personal:
Living: with family
Patient Medication
�Medication �Instructions �Recorded �Confirmed �Last Taken �Type
acetaminophen 500 mg tablet 500 mg PO Q6HPRN PRN mild pain 03/13/24 03/13/24 03/13/24 11:00 History
docusate sodium 100 mg capsule 100 mg PO DAILYPRN PRN constipation 03/13/24 03/13/24 Unknown History
(Stool Softener)
oxycodone 5 mg tablet 10 mg PO Q8HPRN PRN moderate to 03/13/24 03/13/24 03/13/24 14:00 History
severe pain
polyethylene glycol 3350 17 4 g PO DAILYPRN PRN constipation 03/13/24 03/13/24 03/13/24 History
gram/dose oral powder (Miralax)
Active Medications
Generic Name Dose Route Start Last Admin
Trade Name Freq PRN Reason Stop Dose Admin
Acetaminophen 650 mg 03/14/24 04:29
Acetaminophen 325 Mg Tablet PO 04/11/24 04:28
Q4HPRN PRN
Mild Pain / Temp > 101
Cefepime HCl 2,000 mg 03/14/24 22:00
Cefepime Hcl 2,000 Mg/12.5 Ml Vial IV
Q24H CHANDRA
Enoxaparin Sodium 30 mg 03/14/24 18:00
Enoxaparin Sodium 30 Mg/0.3 Ml Syringe SC 04/11/24 17:59
QPM CHANDRA
Hydromorphone HCl 0.5 mg 03/14/24 04:29
Hydromorphone 0.5 Mg/0.5 Ml Syringe IV 03/28/24 04:28
Q4HPRN PRN
Severe Pain
Norepinephrine Bitartrate 4 mg in 250 mls @ 0 mls/hr 03/14/24 04:29
Levophed IV
PER PROTOCOL CHANDRA
Protocol
Per Protocol
Vancomycin HCl 1 each/ Device 0 mls @ 0 mls/hr 03/14/24 04:29
IV
PER PROTOCOL CHANDRA
As Directed
Sodium Chloride 1,000 mls @ 150 mls/hr 03/14/24 04:29 03/14/24 05:36
Nss IV 1,000 mls
.Q6H40M CHANDRA Administration
Ondansetron HCl 4 mg 03/14/24 04:29
Ondansetron 4 Mg/2 Ml Vial IV 04/11/24 04:28
Q6HPRN PRN
nausea and vomiting
Oxycodone HCl 10 mg 03/14/24 04:29
Oxycodone 10 Mg Regular Release Tablet PO 03/28/24 04:28
Q8HPRN PRN
moderate pain
Pantoprazole Sodium 40 mg 03/14/24 08:00
Pantoprazole Sodium 40 Mg/10 Ml Vial IV 04/11/24 07:59
DAILY CHANDRA
Sodium Chloride 0 flush 03/13/24 23:00
Sodium Chloride 0.9% (Flush) Syringe IV 04/10/24 22:59
PER PROTOCOL CHANDRA
Sodium Chloride 10 ml 03/14/24 08:00
Sodium Chloride 0.9% (Preservative Free) 10 Ml Vial IV 04/11/24 07:59
DAILY CHANDRA
Sterile Water 10 ml 03/14/24 22:00
Sterile Water For Injection 10 Ml Vial IV 04/11/24 21:59
Q24H CHANDRA
Review of Systems
-
Patient continues to feel exceedingly weak and fatigued. She has had a sensation of urgency for some time. She had reported previous hematuria. Has had some episodes of diaphoresis and rigors. Otherwise no complaints other than those reported in
the HPI.
Physical Exam
-
Physical Exam
General:Pale and weak
HEENT: EOMI and dry MM
Respiratory: Clear; No Wheezes, Rales or Rhonchi
Cardiac: S1/S2 and Regular Rhythm; No Murmur
GI: Soft and Other (Tenderness along L abdomen without rebound or guarding. Pos bowel sounds. Incisions well-healed.)
Musculoskeletal: No Clubbing, No Cyanosis and No Edema
Neuro: Nonfocal able to answer questions appropriately but lethargic.
Labs
Lab Results
WBC 44.0 10^3/uL (4.8-10.8) H* 03/13/24 22:00
RBC 3.69 10^6/uL (4.20-5.40) L 03/13/24 22:00
Hgb 9.5 g/dL (12.0-16.0) L 03/13/24 22:00
Hct 31.6 % (37.0-47.0) L 03/13/24 22:00
MCV 85.6 fL (81.0-99.0) 03/13/24 22:00
MCH 25.7 pg (27.0-31.0) L 03/13/24 22:00
MCHC 30.1 g/dL (33.0-37.0) L 03/13/24 22:00
RDW 16.9 % (11.5-14.5) H 03/13/24 22:00
Plt Count 397 10^3/uL (130-400) 03/13/24 22:00
MPV 8.4 fL (7.4-10.4) 03/13/24 22:00
Abs Immat Gran (auto) 1.1 10^3/uL (0-0.05) H 03/13/24 22:00
Absolute Neuts (auto) 37.8 10^3/uL (1.4-6.5) H 03/13/24 22:00
Absolute Lymphs (auto) 1.9 10^3/uL (1.2-3.4) 03/13/24 22:00
Absolute Monos (auto) 2.5 10^3/uL (0.1-0.6) H 03/13/24 22:00
Absolute Eos (auto) 0.5 10^3/uL (0-0.7) 03/13/24 22:00
Absolute Basos (auto) 0.2 10^3/uL (0-0.2) 03/13/24 22:00
Immature Gran % 2.5 % (0-0.5) H 03/13/24 22:00
Neutrophils % 86.0 % (42.2-75.2) H 03/13/24 22:00
Lymphocytes % 4.4 % (20.5-51.1) L 03/13/24 22:00
Monocytes % 5.7 % (1.7-9.3) 03/13/24 22:00
Eosinophils % 1.0 % (0-6) 03/13/24 22:00
Basophils % 0.4 % (0-2) 03/13/24 22:00
Creatinine 1.1 mg/dL (0.6-1.0) H 03/14/24 04:34
Vital Signs
Vital Signs
Temp Pulse Resp BP Pulse Ox
99.4 F 72 19 99/50 95
03/13/24 23:41 03/14/24 05:00 03/14/24 05:00 03/14/24 05:00 03/14/24 05:00
[2024-03-14 07:28] LABS: Hematocrit 19.7 % (37.0-47.0); Mean Corp Hgb Conc. 30.5 g/dL (33.0-37.0); Mean Corpuscular Hgb 26.8 pg (27.0-31.0); Mean Corpuscular Volume 87.9 fL (81.0-99.0); Mean Platelet Volume 9.1 fL (7.4-10.4); Platelet Count 413 10^3/uL (130-400); Red Blood Cell Count 2.24 10^6/uL (4.20-5.40); Red Cell Dist. Width 17.1 % (11.5-14.5); White Blood Cell Count 50.8 10^3/uL (4.8-10.8)
[2024-03-14] MEDS: ROXICODONE 10 MG PO ×2 (07:40→17:38)
[2024-03-14] MEDS: LEVOPHED 250 IV (07:41)
[2024-03-14] MEDS: PROTONIX IV 40 MG IV (07:42)
[2024-03-14] MEDS: NSS (PRESERVATIVE FREE) 10 ML IV (07:43)
--- NOTE | 2024-03-14 08:13 | PHA.VAN.IN ---
Assessment
- Assessment
Renal Function: Unknown baseline
Plan
- Plan
Initial / Loading Dose: 2000mg - 03/14 05:37
Maintenance Regimen: dosing by level
Monitoring: random - 03/15 0600
Pharmacokinetics Vancomycin I
- -
Patient Age: 68
Patient Sex: Female
Vancomycin Day #: 1
Indication: Bacteremia
Requesting Provider: Dr. Bernabe
Pertinent Antimicrobial Allergies:
penicillins - swelling
Height / Weight:
Height 5 ft 6 in
Actual Weight 71.3 kg
Pertinent Past Medical History: Metastatic RCC s/p L nephrectomy
- Vital Signs / Lab Results
Temp Pulse Resp BP Pulse Ox
97.5 F 78 19 116/57 96
03/14/24 08:10 03/14/24 07:30 03/14/24 07:30 03/14/24 07:30 03/14/24 07:30
Lab Results - Hematology
03/13/24 03/14/24
22:00 04:34
WBC 44.0 H* 50.8 H*
Lab Results - Chemistry
03/13/24 03/14/24
22:00 04:34
BUN 24 H 23 H
Creatinine 1.4 H 1.1 H
Estimated Creat Clear 35 46
Albumin 3.2 L 2.4 L
03/13/24 03/14/24
22:00 02:54
Lactic Acid 2.0 1.0
Lab Results - Urine
03/13/24
22:00
Urine Nitrite (Reflex) Negative
Leukocyte Esterase Rfl Negative
Urine WBC (Reflex) 0-2
Ur Squamous Epith Cells 0-2
Urine Bacteria (Reflex) Moderate A
Microbiology Results
03/13/24 22:02 Influenza Types A & B (EMILY) - Final
Nasal Swab Negative for Influenza A & B, NAAT
Negative results must be combined with clinical observations
and patient history.
Nucleic Acid Amplification test (NAAT)performed on the
[employer] platform.
--- NOTE | 2024-03-14 08:32 | CON.INTV ---
Consultation
Consultation Request
Date/Time Consultation Requested: 03/14/2024428
Date/Time Consultation Performed: 03/14/2024824
Requesting Provider: Dr. Bernabe
Performing Provider: Dr. Renteria
Reason for Consultation: Shock
Medical History
-
Chief Complaint: AMS, fever, diaphoresis
History of Present Illness:
68-year-old female with a past medical history of metastatic renal cell carcinoma now on chemotherapy (started on 03/12/2024), Raynaud's phenomena, mixed hyperlipidemia, GERD, history of MVP and hiatal hernia who presents with altered mental status,
fever and diaphoresis. She was referred for a left-sided radical nephrectomy after seeing urology on 01/25/[address] Novoa after [address] urography on 01/22/2024 showed an intraluminal ureteral mass/neoplasm which was enhancing. Patient underwent
this procedure at the end of January and then was diagnosed with metastatic transitional cell carcinoma. Prior to coming to the ER she felt well but then became tired as the day started to progress and then later in the afternoon the patient became
agitated upon awakening. Her legs gave out with walking and she was incontinent of enlargement of urine at that time. She was also confused and profusely diaphoretic. She then was helped to the toilet where she passed out and became unresponsive
and 911 was called. In the ER she had no recollection of the events leading up to her ER arrival. In the ER she was febrile to 101.2 �F, tachycardic to 110, breathing at 18 breaths/minute, BP low at 89/58 and saturating 94% on room air. Labs
showed leukocytosis to 44, anemia to 9.5, serum sodium 134, creatinine 1.4, calcium 11.6, uric acid 7.2, troponin negative at <0.012, urinalysis without signs of UTI and COVID antigen negative. Initial CT head showed no acute intracranial
abnormality, and initial CXR showed left basilar subsegmental atelectasis. In the ER she was given 2 L of IVF with NS 0.9%, cefepime, oxycodone, Tylenol and started on Levophed due to continued hypotension with SBP in the 70�80s. She was
transferred to the ICU for further care and cosmetology professor services consulted for additional management/recommendations.
Patient seen and evaluated this morning. Currently on Levophed at 6mcg/min. Currently, heart rate 100, saturating 98% on 2 L/min and BP 127/57. Having left sided abd pain. Going to be transfused 2 units PRBC this AM.
PMHx: Metastatic RCC s/p chemo (first given on 03/12/2024), Raynaud's phenomenon, sleep-related leg cramps, kidney stones, mixed hyperlipidemia, GERD, history of mitral valve prolapse, hiatal hernia
PSHx: L-nephrectomy ([facility]), partial thyroidectomy, lithotripsy
Past Medical History
Past Medical History: Other (Above as per HPI)
Past Surgical History: Other (Above as per HPI)
Social History
Tobacco: Non-smoker
Alcohol: None
Drug: None
Personal:
Living: With Family
Family History
Family History: CAD (Mother), Cancer (Brother: Melanoma; Sister: Breast cancer), Diabetes (Mother), Hypertension (Father) and Other (Father: AAA)
Allergies / Home Medications
Allergies
Allergy/AdvReac Type Severity Reaction Status Date / Time
Penicillins Allergy Swelling Verified 03/13/24 21:51
Home Medications
�Medication �Instructions �Recorded �Confirmed �Last Taken �Type
acetaminophen 500 mg tablet 500 mg PO Q6HPRN PRN mild pain 03/13/24 03/13/24 03/13/24 11:00 History
docusate sodium 100 mg capsule 100 mg PO DAILYPRN PRN constipation 03/13/24 03/13/24 Unknown History
(Stool Softener)
oxycodone 5 mg tablet 10 mg PO Q8HPRN PRN moderate to 03/13/24 03/13/24 03/13/24 14:00 History
severe pain
polyethylene glycol 3350 17 4 g PO DAILYPRN PRN constipation 03/13/24 03/13/24 03/13/24 History
gram/dose oral powder (Miralax)
Review of Systems
-
History Source: Patient
All other systems: Negative unless noted
Vitals / Labs / Diagnostic Testing
Vital Signs
Temp Pulse Resp BP Pulse Ox
97.5 F 83 18 116/50 95
03/14/24 08:10 03/14/24 09:15 03/14/24 09:15 03/14/24 09:15 03/14/24 09:15
Lab Data
03/14/24 04:34
03/14/24 04:34
Microbiology
03/13/24 22:02 Nasal Swab Influenza Types A & B (EMILY) - Final
Negative for Influenza A & B, NAAT
Negative results must be combined with clinical observations
and patient history.
Nucleic Acid Amplification test (NAAT)performed on the
[employer] platform.
Diagnostic Testing:
Physical Exam
-
HEENT: Normocephalic and Anicteric
Cardiovascular: S1/S2, Rub (negative) and Peripheral Edema (negative)
Respiratory: Clear, Wheeze (negative), Rales (negative), Rhonchi (negative) and Non-Labored Respirations
GI: Soft, Non Distended, Tender (Hypogastrium) and Normal Bowel Sounds
Neurology: Awake, Alert and Tremors (negative)
Skin: Warm and Dry
General: Respiratory Distress (negative), Pain (lower abdomen), Chills (negative) and Sweats (negative)
Assessment
-
Assessment: 68-year-old female with a past medical history of metastatic renal cell carcinoma now on chemotherapy (started on 03/12/2024), Raynaud's phenomena, mixed hyperlipidemia, GERD, history of MVP and hiatal hernia who presents with altered
mental status, fever and diaphoresis. She was referred for a left-sided radical nephrectomy after seeing urology on 01/25/[address]oa after [address] urography on 01/22/2024 showed an intraluminal ureteral mass/neoplasm which was enhancing.
Patient underwent this procedure at the end of January and then was diagnosed with metastatic transitional cell carcinoma. Prior to coming to the ER she felt well but then became tired as the day started to progress and then later in the afternoon
the patient became agitated upon awakening. Her legs gave out with walking and she was incontinent of enlargement of urine at that time. She was also confused and profusely diaphoretic. She then was helped to the toilet where she passed out and
became unresponsive and 911 was called. In the ER she had no recollection of the events leading up to her ER arrival. In the ER she was febrile to 101.2 �F, tachycardic to 110, breathing at 18 breaths/minute, BP low at 89/58 and saturating 94% on
room air. Labs showed leukocytosis to 44, anemia to 9.5, serum sodium 134, creatinine 1.4, calcium 11.6, uric acid 7.2, troponin negative at <0.012, urinalysis without signs of UTI and COVID antigen negative. Initial CT head showed no acute
intracranial abnormality, and initial CXR showed left basilar subsegmental atelectasis. In the ER she was given 2 L of IVF with NS 0.9%, cefepime, oxycodone, Tylenol and started on Levophed due to continued hypotension with SBP in the 70�80s. She
was transferred to the ICU for further care and cosmetology professor services consulted for additional management/recommendations.
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
Impression:
#Shock requiring vasopressor -given her acute anemia, hemorrhagic shock is a top differential in the setting of poor PO intake prior to arrival and hypoalbuminemia
#Leukocytosis - likely reactive in the setting of above as well as newly diagnosed metastatic RCC
#Acute anemia
#Iron deficiency anemia with iron saturation 16% (ferritin levels likely high due to acute phase reactant in the setting of above)
#Thrombocytosis likely reactive
#PRINCESS (baseline creatinine 0.9)
#Hypercalcemia
#Metastatic RCC recently started on chemotherapy on 03/12/2024
#History of GERD
#History of mitral valve prolapse
#Hiatal hernia
Plan:
- Patient has CT abdomen/pelvis today and the base of the lungs do not show any acute pathology, hence this shock state is not due to a pneumonia
- CT A/P from 03/14/2024 shows mets to the spleen + omental implants with a simple fluid attenuation in the perisplenic area measuring 9.8 cm, likely a postoperative seroma with another soft tissue attenuation along the posterior aspect of the
nephrectomy bed measuring 10.8 cm likely metastatic disease versus postoperative hematoma
- Of note, patient had an MRI of the abdomen/pelvis recently at [facility] and this irregular enhancing soft tissue collection along the posterior nephrectomy that was seen at that time measured 2.3 x 5 x 7 cm and at that time was suspected to represent
metastatic/residual tumor
- Trend H/H and transfuse if needed to keep Hb>7g/dL; keep plt>20k, unless there is concern for bleeding then keep plt>50k
- Hold antiplatelet/anticoagulants for now
- Continue with vasopressors with Levophed and titrate to maintain MAP >65
- Continue with broad-spectrum antibiotics � currently on IV vancomycin/cefepime
- Follow-up blood cultures + UCx collected on 03/13/2024
- Continue with IVF maintenance fluids with NS at 0.9% currently at 150 cc/h; monitor for fluid overload and would place a stop date on the IVF to avoid this
- Administer albumin to reach goal albumin level >3g/dL
- Maintain SpO2 >90-94% with supplemental O2 as needed
- Replete electrolytes with K>4, Mg>2
- Maintain euglycemia with goal BG 140-180
- Currently on CLD --> ADAT as vasopressor requirements come down
- prn nebulized bronchodilators - not currently bronchospastic
- DVT ppx - hold chemical ppx in setting of acute anemia; Use SCDs only for now
Critical care statement: A total of 41 minutes of critical care time was provided for this patient today. This includes management of unstable vital signs, evaluation of the patient at bedside, reviewing the patient's pertinent medical records
including radiographs, microbiology, laboratory evaluations, and discussion with primary team, consultants, pharmacy, nutrition, physical therapy, case management, charge nurse, critical care nursing, and respiratory therapy.
Data:
CT Abd/Pelvis without contrast 03/14/2024:
1. Post left nephrectomy. There are multiple new soft tissue attenuation nodules inferior to the spleen which most likely represent metastases. There is interval increase in size of previously seen retroperitoneal zully metastases. There are
multiple new omental implants representing metastases.
2. Simple fluid attenuation perisplenic collection measuring up to 9.8 cm in diameter as above, most likely postoperative seroma.
3. Abnormal soft tissue attenuation along the posterior aspect of the nephrectomy bed measuring up to 10.8 cm in diameter as above, metastatic disease versus postoperative hematoma.
--- NOTE | 2024-03-14 09:00 | PTCARENOTE ---
Dr. Dailey notified of HGB 6. Updated on the events overnight. Also notified of urinary retention and straight cath for 800ml's, odoriferous jody urine.
--- NOTE | 2024-03-14 09:10 | CM ---
Patient seen at bedside with physician. Patient daughter, son and also present. Patient states that she lives with daughter, grandson and in a 2 story home. Patient with no DME at home, no past need for VN or SNF. Patient PCP is "Iván"Lynda and she uses [facility] in [place]. Patient recently started chemo with [facility]. Patient plan is to go home with no needs. 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 CM will continue
to follow for discharge planning needs.
Plan; home with VN vs home with no needs.
--- NOTE | 2024-03-14 09:13 | W.PN.HOSP.TC ---
Today's Communication/Plan
-
renew drips
consult ID
transfuse 2 units pRBC
cont abx
follow cultures
Assessment / Plan
Assessment / Plan
pt is a 68 year old female
Septic Shock--requiring pressors--unclear source--possibly urine--cont vanco/cefepime--consult ID--WBC 50K did not get GCSF--alternatively could be due to chemo reaction?--apprec heme--CXR, CT a/p pending
anemia--likely from chemo--no signs of significant bleeding--add iron, TIBC, %sat, ferritin, folate, F13--xyzedxwca 2 units pRBC
PRINCESS--creat 1.4--with IVF down to 1.1--baseline 0.9--does have some urinary retention--st cath for 800mls--consider bynum if needed
Hypercalcemia--11.6 on admission--down to 10.4--hypovolemia vs malignancy vs tumor lysis--uric acid 7.2
DVT Prophylaxis: Lovenox
Code Status: DNR
, daughter, son at bedside
Total Critical Care Time 40 minutes. I was immediately available to the patient and staff. I personally examined, reviewed labs, diagnostic images/reports, interpretations, treatment plans, discussed patient care with other providers and family
or caregivers (if patient is unable to make decisions), entered orders as appropriate and documented the medical record.
Anticipated Discharge: > 48 hours
Subjective/Interval History
-
Date of Service: March 14, 2024
pt feeling better after 800mls removed from bladder
Objective Data
-
Labs:
Laboratory Results
03/13/24 03/14/24 03/14/24
22:00 04:34 06:00
WBC 44.0 H* 50.8 H*
Hgb 9.5 L 6.0 L* D
Hct 31.6 L 19.7 L*
Plt Count 397 413 H
PT Pending
INR Pending
APTT Pending
Sodium 134 L 135
Potassium 4.9 5.0
Chloride 96 L 104
Carbon Dioxide 27 24
BUN 24 H 23 H
Creatinine 1.4 H 1.1 H
Glucose 76 102 H
Calcium 11.6 H 10.4 H
Total Bilirubin 0.5 0.5
AST 29 30
ALT 18 15
Alkaline Phosphatase 186 H 147 H
Vital Signs:
max temp for 24 hours
03/13/24
21:40
Temp 101.2 F H
Vital Signs
Temp Pulse Resp BP Pulse Ox
97.5 F 78 19 116/57 96
03/14/24 08:10 03/14/24 07:30 03/14/24 07:30 03/14/24 07:30 03/14/24 07:30
Review of Systems
-
All other systems: Reviewed and negative
Physical Exam
-
General: Well Developed, Well Nourished, No Apparent Distress and Other (pale)
HEENT: Normocephalic and Atraumatic; Negative Oxygen
Respiratory: Clear to Auscultation; Negative Wheezes or Rhonchi
Cardiac: Regular Rhythm and S1/S2; Negative Murmur
GI: Soft, Nontender, Nondistended and Normal Bowel Sounds
Musculoskeletal: No Clubbing, No Cyanosis and No Edema
Neuro: Awake and Alert
Psych: Calm
[2024-03-14 10:23] LABS: Iron 26 ug/dl (37-170)
[2024-03-14 10:26] LABS: INR 1.09; PT 14.6 Sec (11.4-14.6)
[2024-03-14 10:33] LABS: Percent Saturation 16 % (20-50); Total Iron Binding Capacity 156 ug/dl (265-497)
--- NOTE | 2024-03-14 10:39 | CON.ID ---
Consultation
-
Date/Time Consultation Requested: 03/14/2024 0913
Date/Time Consultation Performed: 03/14/2024 1015
Requesting Provider: Dr. Dailey
Performing Provider: Dr. Angelo
Reason for Consultation: Clinical sepsis
Chief Complaint / Past History
Past History
Additional Past Medical History:
Metastatic urothelial cancer with mets to cervical region and pelvic floor
Hx nephrolithiasis
Additional Past Surgical History:
Left nephrectomy (02/06/2024 @[facility])
Partial thyroidectomy
Allergy History:
Penicillins Allergy (Verified 03/13/24 21:51)
Swelling
Medications Reviewed: Yes
Current Antibiotics:
Vancomycin
Cefepime
Social History
Tobacco: Non-Smoker
Alcohol: None
Drug: None
Personal:
Living: With Family
Employment: Retired
Family History
Family History: Not Pertinent
Review of Systems
Vital Signs
Temp Pulse Resp BP Pulse Ox
97.5 F 83 18 116/50 95
03/14/24 08:10 03/14/24 09:15 03/14/24 09:15 03/14/24 09:15 03/14/24 09:15
Physical Exam
Physical Exam
Constitutional: Comfortable, Acutely Ill and Non-toxic
Head: Normocephalic
Eyes: Pupils Equal, Pupils Round, No Conjunctival Hemorrhage and Sclera Anicteric
Oral: No Thrush and No Ulcers
Cardiovascular: Regular Rate and S1/S2; Negative S3/S4
Pulmonary: Clear; Negative Wheezes, Rales or Rhonchi
Gastrointestinal: Soft, Non Tender, Non Distended, Normal Bowel Sounds, No Rebound and No Guarding
Extremities: Negative Edema, Cyanosis or Erythema
Skin: Warm and Dry; Negative Rash or Jaundice
Neurological: Awake and Alert
Psychological: Calm
Lab / Diagnostic Study Results
03/14/24 04:34
03/14/24 04:34
Abs Immat Gran (auto) 1.1 10^3/uL (0-0.05) H 03/13/24 22:00
Absolute Neuts (auto) 37.8 10^3/uL (1.4-6.5) H 03/13/24 22:00
Absolute Lymphs (auto) 1.9 10^3/uL (1.2-3.4) 03/13/24 22:00
Absolute Monos (auto) 2.5 10^3/uL (0.1-0.6) H 03/13/24 22:00
Absolute Basos (auto) 0.2 10^3/uL (0-0.2) 03/13/24 22:00
Immature Gran % 2.5 % (0-0.5) H 03/13/24 22:00
Neutrophils % 86.0 % (42.2-75.2) H 03/13/24 22:00
Lymphocytes % 4.4 % (20.5-51.1) L 03/13/24 22:00
Monocytes % 5.7 % (1.7-9.3) 03/13/24 22:00
Eosinophils % 1.0 % (0-6) 03/13/24 22:00
Basophils % 0.4 % (0-2) 03/13/24 22:00
PT 14.6 Sec (11.4-14.6) 03/14/24 10:01
INR 1.09 03/14/24 10:01
Lactic Acid 1.0 mmol/L (0.7-2.0) 03/14/24 02:54
Ur Squamous Epith Cells 0-2 /LPF (Few) 03/13/24 22:00
Microbiology Results
Micro:
03/13/24 22:02 Influenza Types A & B (EMILY) - Final
Nasal Swab Negative for Influenza A & B, NAAT
Negative results must be combined with clinical observations
and patient history.
Nucleic Acid Amplification test (NAAT)performed on the
[employer] platform.
03/13/24 22:00 Urine Culture - Pending
Urine
03/13/24 22:00 Blood Culture - Pending
Blood/Venous
03/13/24 22:00 Blood Culture - Pending
Blood/Venous
Imaging:
03/14/2024 CT abdomen/pelvis without contrast: Patient is post left nephrectomy. There are multiple new soft tissue attenuation nodules inferior to the spleen, which most likely represent metastasis. There is interval increase in size of previously
seen retroperitoneal zully metastasis. There are new multiple omental implants representing metastasis. A simple fluid attenuation perisplenic collection measuring up to 9.8 cm is most likely a postoperative seroma. There is abnormal soft tissue
attenuation along the posterior aspect of the nephrectomy bed measuring up to 10.8 cm and is metastatic disease versus postoperative hematoma. Please see full dictation for additional detail. Film personally viewed.
Assessment / Plan
Clinical sepsis
Metastatic urothelial carcinoma; recently started chemotherapy
Fever
Leukocytosis
Anemia
RPINCESS; improved
Recommendations:
Continue with empiric cefepime; increase to 2 g IV every 12 hours. Further dosing based upon CrCl.
Discontinue further vancomycin. Will restart should MRSA be recovered.
Monitor white count and temperature curve.
Wean norepinephrine while keeping MAP greater than 65
Will follow pending cultures.
Patient critically ill in ICU
Further recommendations as additional data is returned.
[2024-03-14] MEDS: TYLENOL 500 MG PO ×2 (12:12→23:50)
[2024-03-14 12:45] LABS: Folate 3.7 ng/ml (2.76-20); Vitamin B12 542 pg/ml (239-931)
[2024-03-14] MEDS: STERILE WATER FOR INJECTION 10 ML IV ×2 (12:49→23:49)
[2024-03-14] MEDS: MAXIPIME 2000 MG IV ×2 (12:49→23:49)
--- NOTE | 2024-03-14 13:02 | PTCARENOTE ---
Temperature 99 prior to sending for blood. Upon two nurse identification and verification of blood product her temp was 101.6. She had gotten Tylenol 500mg @ 1212 due to restlessness, increased HR 110-115, with increased RR 24, forgetfulness and
trying to get OOB to the BR after I put her on a bedpan. Blood bank notified I was sending the blood back, Dr. Dailey and Dr. Renetria notified of Temperature and further orders of ok to administer blood product.
--- NOTE | 2024-03-14 13:08 | PTCARENOTE ---
Per will hold blood transfusion for now and reassess temperature.
--- NOTE | 2024-03-14 14:15 | PTCARENOTE ---
Afebrile. Dr. Dailey notified. Will call for PRBC's. Pt looks alert and back to baseline. Her is at the bedside very upset about his 's DNR status. Supportive care given.
--- NOTE | 2024-03-14 15:02 | PTCARENOTE ---
Notified custom frame assembler services for family support given recent diagnosis and present illness.
--- NOTE | 2024-03-14 16:25 | CHAP ---
Emotional and spiritual support provided for Joi and her , Amadeo. Long talk with Amadeo in waiting area, listening as he shared stories of their marriage, her illness and recent setbacks. Will follow. Also provided a prayer blanket.
[2024-03-14] MEDS: FLEXBUMIN 100 IV (19:21)
--- NOTE | 2024-03-14 21:00 | PTCARENOTE ---
probation supervisor, pt denies pain, SR 80-90s, RA Sat 94%, B/L AC IV appear infiltrated- pt appears to be difficult for access- IV team called to bedside to assist with IV/CBC draw. Family at bedside, POC discussed.
[2024-03-14 22:34] LABS: Hematocrit 34.4 % (37.0-47.0); Hemoglobin 11.1 g/dL (12.0-16.0); Mean Corp Hgb Conc. 32.3 g/dL (33.0-37.0); Mean Corpuscular Hgb 27.1 pg (27.0-31.0); Mean Corpuscular Volume 83.9 fL (81.0-99.0); Mean Platelet Volume 8.1 fL (7.4-10.4); Platelet Count 270 10^3/uL (130-400); Red Cell Dist. Width 16.1 % (11.5-14.5); White Blood Cell Count 49.1 10^3/uL (4.8-10.8)
--- NOTE | 2024-03-14 23:45 | PTCARENOTE ---
pt voided small amt urine, bladder scanned for 562cc, straight cath for 600cc. tylenol given for temp 102.2. no further changes.
[2024-03-15] VITALS (18 sets, daily range): BP systolic 89–131; BP diastolic 46–74; BMI 26.0
[2024-03-15] MEDS: ROXICODONE 10 MG PO ×2 (01:49→09:56)
[2024-03-15] MEDS: NSS 1000 IV (06:03)
--- NOTE | 2024-03-15 07:00 | PTCARENOTE ---
Received pt with family members at the bedside. Pt is awake and alert. Dry oral mucosa. Right wrist #22g protective catheter with IVF as ordered. Lungs CTA. Hypoactive BSX4. Reviewed plan of care with Dr. Dailey, and the events overnight. Pt with
febrile episode overnight associated with restlessness, confusion, rigors. She is aware that pt has not moved her bowels since Monday and that pt takes Miralax and other stool softeners at home. Appetite remains poor. Pt on a clear liquid diet and
unclear as to why. Will continue to monitor.
[2024-03-15 07:25] LABS: Hematocrit 35.3 % (37.0-47.0); Hemoglobin 10.9 g/dL (12.0-16.0); Mean Corp Hgb Conc. 30.9 g/dL (33.0-37.0); Mean Corpuscular Hgb 26.5 pg (27.0-31.0); Mean Corpuscular Volume 85.7 fL (81.0-99.0); Mean Platelet Volume 8.5 fL (7.4-10.4); Platelet Count 259 10^3/uL (130-400); Red Blood Cell Count 4.12 10^6/uL (4.20-5.40); Red Cell Dist. Width 16.2 % (11.5-14.5); White Blood Cell Count 39.1 10^3/uL (4.8-10.8)
[2024-03-15 07:35] LABS: ALT (SGPT) 14 U/L (0-35); AST (SGOT) 25 U/L (14-36); Albumin 2.4 g/dl (3.5-5.0); Alkaline Phosphatase 136 U/L (38-126); Blood Urea Nitrogen 15 mg/dl (7-17); Carbon Dioxide 26 mmol/L (22-30); Chloride 103 mmol/L (98-107); Estimated Creatinine Clearance 56 ml/min; Glucose 88 mg/dl (70-99); Magnesium 2.1 mg/dl (1.6-2.3); Phosphorus 3.5 mg/dl (2.5-4.5); Potassium 4.4 mmol/L (3.5-5.1); Sodium 137 mmol/L (135-145); Total Bilirubin 1.1 mg/dl (0.2-1.3); Total Protein 5.3 g/dl (6.3-8.2); eGFR > 60.00
--- NOTE | 2024-03-15 08:28 | W.PN.INTV ---
Today's Communication / Plan
Recommendations
Pain control
Aspiration precautions
Encourage incentive spirometer use
Defer her metastatic RCC treatment options to oncology
CT abdomen/pelvis shows worsening metastatic lesions - depending what her treatment options are, she may be appropriate for hospice; this is an ongoing discussion between the pt and family
Patient is stable for downgrade out of ICU to telemetry. No additional recommendations at this time. Legal Adviser/Pulmonary service will now sign off. Please re-consult if there are any additional questions/concerns, or if patient's respiratory
status deteriorates.
Assessment
-
Assessment: 68-year-old female with a past medical history of metastatic renal cell carcinoma now on chemotherapy (started on 03/12/2024), Raynaud's phenomena, mixed hyperlipidemia, GERD, history of MVP and hiatal hernia who presents with altered
mental status, fever and diaphoresis. She was referred for a left-sided radical nephrectomy after seeing urology on 01/25/[address] Novoa after [address] urography on 01/22/2024 showed an intraluminal ureteral mass/neoplasm which was enhancing.
Patient underwent this procedure at the end of January and then was diagnosed with metastatic transitional cell carcinoma. Prior to coming to the ER she felt well but then became tired as the day started to progress and then later in the afternoon
the patient became agitated upon awakening. Her legs gave out with walking and she was incontinent of enlargement of urine at that time. She was also confused and profusely diaphoretic. She then was helped to the toilet where she passed out and
became unresponsive and 911 was called. In the ER she had no recollection of the events leading up to her ER arrival. In the ER she was febrile to 101.2 �F, tachycardic to 110, breathing at 18 breaths/minute, BP low at 89/58 and saturating 94% on
room air. Labs showed leukocytosis to 44, anemia to 9.5, serum sodium 134, creatinine 1.4, calcium 11.6, uric acid 7.2, troponin negative at <0.012, urinalysis without signs of UTI and COVID antigen negative. Initial CT head showed no acute
intracranial abnormality, and initial CXR showed left basilar subsegmental atelectasis. In the ER she was given 2 L of IVF with NS 0.9%, cefepime, oxycodone, Tylenol and started on Levophed due to continued hypotension with SBP in the 70�80s. She
was transferred to the ICU for further care and watch hairspring assembler services consulted for additional management/recommendations.
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
Impression:
#Shock requiring vasopressor -given her acute anemia, hemorrhagic shock is a top differential in the setting of poor PO intake prior to arrival and hypoalbuminemia - shock state now resolved
#Leukocytosis - likely reactive in the setting of above as well as newly diagnosed metastatic RCC - leukocytosis is improving
#Acute anemia - stable
#Iron deficiency anemia with iron saturation 16% (ferritin levels likely high due to acute phase reactant in the setting of above)
#Thrombocytosis likely reactive - now resolved
#PRINCESS (baseline creatinine 0.9) -PRINCESS resolved
#Hypercalcemia - worsening
#Metastatic RCC recently started on chemotherapy on 03/12/2024
#History of GERD
#History of mitral valve prolapse
#Hiatal hernia
Plan:
- Patient has CT abdomen/pelvis yesterday and the base of the lungs do not show any acute pathology, hence her shock state is not due to a pneumonia
- CT A/P from 03/14/2024 shows metastatic lesions to the spleen + omental implants with a simple fluid attenuation in the perisplenic area measuring 9.8 cm, likely a postoperative seroma with another soft tissue attenuation along the posterior
aspect of the nephrectomy bed measuring 10.8 cm likely metastatic disease versus postoperative hematoma
- Of note, patient had an MRI of the abdomen/pelvis recently at [place] and this irregular enhancing soft tissue collection along the posterior nephrectomy that was seen at that time measured 2.3 x 5 x 7 cm and at that time was suspected to represent
metastatic/residual tumor
- Trend H/H and transfuse if needed to keep Hb>7g/dL; keep plt>50k
- Hold antiplatelet/anticoagulants for now
- Maintain MAP >65
- Continue with broad-spectrum antibiotics � currently on cefepime s/p IV vancomycin
- Follow-up blood cultures + UCx collected on 03/13/2024 - all show NGTD
- Administer albumin to reach goal albumin level >3g/dL
- Maintain SpO2 >90-94% with supplemental O2 as needed
- Replete electrolytes with K>4, Mg>2
- Maintain euglycemia with goal BG 140-180
- Currently on CLD --> ADAT
- prn nebulized bronchodilators - not currently bronchospastic
- DVT ppx - hold chemical ppx in setting of acute anemia; Use SCDs only for now
Guarded prognosis; in the setting of her worsening metastatic lesions, she is appropriate for hospice depending what her treatment options are per oncology.
Patient is stable for downgrade out of ICU to telemetry. No additional recommendations at this time. Legal Adviser/Pulmonary service will now sign off. Thank you for allowing us to be involved in the care of this patient. Please reconsult if there
are any additional questions/concerns, or if patient's respiratory status deteriorates.
Data:
CT Abd/Pelvis without contrast 03/14/2024:
1. Post left nephrectomy. There are multiple new soft tissue attenuation nodules inferior to the spleen which most likely represent metastases. There is interval increase in size of previously seen retroperitoneal zully metastases. There are
multiple new omental implants representing metastases.
2. Simple fluid attenuation perisplenic collection measuring up to 9.8 cm in diameter as above, most likely postoperative seroma.
3. Abnormal soft tissue attenuation along the posterior aspect of the nephrectomy bed measuring up to 10.8 cm in diameter as above, metastatic disease versus postoperative hematoma.
Total time spent today was 56 minutes for this encounter. Time includes reviewing laboratory test/imaging results, reviewing pertinent medical records, obtaining and reviewing medical history, performing an appropriate exam, ordering medications,
tests and procedures. Time also includes documentation of this encounter, coordinating patient care and communicating with other healthcare professionals. Total time does not include separately billed tests performed on this date of service.
Subjective Dataa
Subjective Data
Date of Service:
Date of Service: March 15, 2024
Chief Complaint: Legal Adviser Follow Up
Subjective:
Patient was seen and evaluated today at bedside. Patient's daughter as well as son, Linus, and , Amadeo, are all at bedside and all questions were answered. Patient had just received pain medication so she was sleepy/lethargic. Patient's
heart rate is currently 103, saturating 96% on room air and BP 117/78.
Review of Systems
General: Other (Unable to obtain given patient's acute clinical status)
Objective Data
Data Reviewed
Vital Signs / I&O / Oxygen:
Vital Signs
Temp Pulse Resp BP Pulse Ox
97.7 F 73 14 93/74 96
03/15/24 07:55 03/15/24 06:45 03/15/24 06:45 03/15/24 06:00 03/15/24 06:45
Intake and Output
03/14/24 03/15/24 03/16/24
06:59 06:59 06:59
Intake Total 4847.7 / 4997.7 300 / 300
Output Total 2175 / 2175
Balance 2672.7 / 2822.7 300 / 300
SaO2 96
Nasal Cannula flow liters per 96
minute
Physical Exam
General: Respiratory Distress (negative), Pain (Lower abdomen), Chills (negative) and Sweats (negative)
HEENT: Normocephalic and Anicteric
Cardiovascular: S1-S2 and Peripheral Edema (negative)
Respiratory: Clear, Wheeze (negative), Crackles (negative), Rhonchi (negative), Accessory Resp Muscle Use (negative) and Stridor (negative)
GI: Soft, Non Distended, Tender (Lower abdomen) and Normal Bowel Sounds
Neurology: Other (Sleepy after getting pain medications, although arousable to voice/tactile stimulation)
Skin: Warm, Dry, Cyanosis (negative) and Jaundice (negative)
Labs/Micro/Reports
Lab Data
03/15/24 06:33
03/15/24 06:33
Laboratory Results
03/14/24
10:01
PT 14.6
INR 1.09
APTT 27.0
Microbiology
03/13/24 22:00 Blood/Venous Blood Culture - Preliminary
No Growth in 24 hours- Final report to follow
03/13/24 22:00 Blood/Venous Blood Culture - Preliminary
No Growth in 24 hours- Final report to follow
03/13/24 22:02 Nasal Swab Influenza Types A & B (EMILY) - Final
Negative for Influenza A & B, NAAT
Negative results must be combined with clinical observations
and patient history.
Nucleic Acid Amplification test (NAAT)performed on the
[employer] platform.
[2024-03-15] MEDS: NSS (PRESERVATIVE FREE) 10 ML IV (08:38)
[2024-03-15] MEDS: PROTONIX IV 40 MG IV (08:38)
--- NOTE | 2024-03-15 08:50 | W.PN.HOSP.TC ---
Today's Communication/Plan
-
transfer to med/surg
PT/OT
follow urine output/retention--bladder scan
Assessment / Plan
Assessment / Plan
pt is a 68 year old female
Septic Shock--requiring pressors, now off--unclear source--possibly urine, blood cultures NGTD but urine culture pending--cont cefepime--apprec ID--WBC 50K did not get GCSF, down to 39K--alternatively could be due to chemo reaction?--apprec
heme--CXR with atelectasis otherwise neg-- CT a/p shows multiple new soft tissue nodules likely mets, increase in size of retroperitoneal zully mets, multiple new omental mets with postop seromas--pt and family indicate that they know this
information but I am not so sure as these are NEW findings--
urinary retention--pt needed to be st cath--says once she gets up she will void better--follow for now, bladder scan, may need flomax
anemia--likely from chemo--no signs of significant bleeding--s/p 2 units pRBC and HGB now 10.9-- iron, TIBC, %sat, ferritin all consistent with anemia of chronic disease-- folate low normal, B12 midrange
PRINCESS--creat 1.4--with IVF down to 1.1 and now 0.9--does have some urinary retention--st cath for 800mls--consider bynum if needed
Hypercalcemia--11.6 on admission--down to 10.4--hypovolemia vs malignancy vs tumor lysis--uric acid 7.2
DVT Prophylaxis: Lovenox
Code Status: DNR
, daughter, son at bedside
transfer to med/surg--PT/OT
Anticipated Discharge: > 48 hours
Subjective/Interval History
-
Date of Service: March 15, 2024
pt wants to get up and go home
Objective Data
-
Labs:
Laboratory Results
03/14/24 03/15/24
22:21 06:33
WBC 49.1 H* 39.1 H
Hgb 11.1 L D 10.9 L
Hct 34.4 L 35.3 L
Plt Count 270 D 259
Sodium 137
Potassium 4.4
Chloride 103
Carbon Dioxide 26
BUN 15
Creatinine 0.9
Glucose 88
Calcium 11.0 H
Total Bilirubin 1.1
AST 25
ALT 14
Alkaline Phosphatase 136 H
Vital Signs:
max temp for 24 hours
03/14/24
23:41
Temp 102.2 F H
Vital Signs
Temp Pulse Resp BP Pulse Ox
97.7 F 73 14 93/74 96
03/15/24 07:55 03/15/24 06:45 03/15/24 06:45 03/15/24 06:00 03/15/24 06:45
I&O
03/14/24 03/15/24 03/16/24
06:59 06:59 06:59
Intake Total 4847.7 / 4997.7 300 / 300
Output Total 2175 / 2175
Balance 2672.7 / 2822.7 300 / 300
Review of Systems
-
All other systems: Reviewed and negative
Physical Exam
-
General: Well Developed, Well Nourished, No Apparent Distress and Comfortable
HEENT: Normocephalic and Atraumatic; Negative Oxygen
Respiratory: Clear to Auscultation; Negative Wheezes or Rhonchi
Cardiac: Regular Rhythm and S1/S2; Negative Murmur
GI: Soft, Nontender, Nondistended and Normal Bowel Sounds
Musculoskeletal: No Clubbing, No Cyanosis and No Edema
Skin: Warm
Neuro: Awake
Psych: Calm
--- NOTE | 2024-03-15 09:14 | PTCARENOTE ---
Post void residual 167 while in bed. She stated she was having difficulty emptying her bladder since December. Together we plan for OOB to the chair, her using the commode or the BR as tolerated and continuing with post void bladder scans to ensure
she is completely emptying her bladder. She was agreeable. Additionally, she was tearful due to her 's sorrow and the events since her diagnosis. Family asked RN to check their father's BP, they were informed that if they were concerned about
his wellbeing they needed to take him to the ED or that I could call the ED team to come and have him evaluated. They refused at this time stating 'he's ok'. Safe environment maintained. Will continue supportive care. They are also aware she is
being downgraded .
--- NOTE | 2024-03-15 09:15 | CM ---
Addendum entered by Yue White 03/15/24 13:11:
Patient nursing contacted physician and requested referral to [facility] hospice. CM sent tt to liaison and referral sent via all scripts. CM will continue to follow for discharge planning needs.
Plan; hospice to review options.
Original Note:
Patient seen at bedside with physician and family. Patient stated that she wants to go home. 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 CM will continue to follow for discharge planning needs.
Plan; home with family supports.
--- NOTE | 2024-03-15 09:21 | W.PN.UPDATE ---
Update Note
Progress Note Update
Spoke with patient's oncologist (Dr. Levine) from [place] who called me for an update. Explained results of CAT scan to him, white blood cell count, off pressors, hemoglobin after transfusion, uric acid numbers, etc. He told me that patient had a
very hard time deciding whether she wanted treatment in the first place or hospice. She elected for treatment and has only had 1 dose 3 to 4 days ago. He states that he wanted to make sure there was no infection that could be reversed and that
because cultures are negative and this is likely not the case; that patient should focus on a different treatment plan, 'I think they should go in a different direction'. He did tell me that he will call the patient's daughter Tisha to discuss what
I have told him.
[2024-03-15] MEDS: TYLENOL 500 MG PO ×3 (09:57→20:08)
--- NOTE | 2024-03-15 10:07 | PTCARENOTE ---
Pt with tremors, mild confusion, restlessness. Tachypnea, tachycardia. Tylenol and Oxycodone administered. Bladder scanned again for 303ml's. Bed lawson provided. Dr. Angelo at the bedside updating the family and reviewing s/s of infection.
--- NOTE | 2024-03-15 10:17 | W.PN.ID1 ---
Date of Service
Date of Service: March 15, 2024
Today's Communication
Continue current antibiotics.
Assessment / Plan
Clinical sepsis
Metastatic urothelial carcinoma; recently started chemotherapy
Fever
Leukocytosis
Anemia
PRINCESS; improved
Recommendations:
Continue with empiric cefepime
Monitor white count and temperature curve.
Follow pending cultures.
Further recommendations as additional data is returned.
Family contemplating hospice; awaiting to hear from Oncology at [facility].
Chief Complaint
-: Clinical Sepsis
Subjective / Review of Systems
Patient seen and examined. Currently with rigors. Admits to some lower abdominal discomfort.
Review of Systems: Fever
Vital Signs / Physical Exam
Vital Signs
Vital Signs
Temp Pulse Resp BP Pulse Ox
97.7 F 105 27 124/73 94
03/15/24 07:55 03/15/24 10:00 03/15/24 10:00 03/15/24 10:00 03/15/24 09:45
Physical Exam
Constitutional: Comfortable, Acutely Ill and Non-toxic
Eyes: Sclera Anicteric
Cardiovascular: S1/S2; Negative S3/S4
Pulmonary: Non Labored
Gastrointestinal: Soft, Tender (mild) and Non Distended
Neurological: Awake and Alert
Psychological: Calm
Objective Data
Lab Data
Lab Results
03/15/24 06:33
03/15/24 06:33
PT 14.6 Sec (11.4-14.6) 03/14/24 10:01
INR 1.09 03/14/24 10:01
APTT 27.0 Sec (23.4-35.0) 03/14/24 10:01
Estimated Creat Clear 56 ml/min 03/15/24 06:33
Lactic Acid 1.0 mmol/L (0.7-2.0) 03/14/24 02:54
Total Bilirubin 1.1 mg/dl (0.2-1.3) 03/15/24 06:33
AST 25 U/L (14-36) 03/15/24 06:33
ALT 14 U/L (0-35) 03/15/24 06:33
Alkaline Phosphatase 136 U/L (38-126) H 03/15/24 06:33
Most recent labs reviewed.
Micro Results:
03/13/24 22:00 Urine Culture - Final
Urine NO GROWTH
03/13/24 22:00 Blood Culture - Preliminary
Blood/Venous No Growth in 24 hours- Final report to follow
03/13/24 22:00 Blood Culture - Preliminary
Blood/Venous No Growth in 24 hours- Final report to follow
03/13/24 22:02 Influenza Types A & B (EMILY) - Final
Nasal Swab Negative for Influenza A & B, NAAT
Negative results must be combined with clinical observations
and patient history.
Nucleic Acid Amplification test (NAAT)performed on the
[employer] platform.
Imaging:
03/14/2024 CT abdomen/pelvis without contrast: Patient is post left nephrectomy. There are multiple new soft tissue attenuation nodules inferior to the spleen, which most likely represent metastasis. There is interval increase in size of previously
seen retroperitoneal zully metastasis. There are new multiple omental implants representing metastasis. A simple fluid attenuation perisplenic collection measuring up to 9.8 cm is most likely a postoperative seroma. There is abnormal soft tissue
attenuation along the posterior aspect of the nephrectomy bed measuring up to 10.8 cm and is metastatic disease versus postoperative hematoma. Please see full dictation for additional detail. Film personally viewed.
--- NOTE | 2024-03-15 10:36 | PTCARENOTE ---
Windows Migration Technician services at the bedside. Pt having end of life discussions with her daughter. Daughter is very supportive of her mother's decisions. Will continue to monitor.
--- NOTE | 2024-03-15 11:03 | PTCARENOTE ---
Pt asleep, desaturated, 3 liters nasal cannula applied.
--- NOTE | 2024-03-15 12:45 | PTCARENOTE ---
Pt's family informed me that the oncologist from [facility] contacted them and was provided information regarding her current hospitalization from the physicians here. With the recommendation from the oncologist @ [facility], they agree that hospice would be
appropriate at this time. Dr. Dailey notified of this, hospice consulted and notified by RN. Spoke with Yue in hospice and will notify clinical laboratory service teacher.
[2024-03-15] MEDS: MIRALAX 17 GRAMS PO (12:57)
[2024-03-15] MEDS: MAXIPIME 2000 MG IV (12:57)
[2024-03-15] MEDS: STERILE WATER FOR INJECTION 10 ML IV (12:57)
--- NOTE | 2024-03-15 13:13 | HOSPNOTE ---
Hospice referral received and will meet with family. More information to follow.
[2024-03-15] MEDS: NSS IV (13:31)
--- NOTE | 2024-03-15 13:38 | PTCARENOTE ---
Supportive care provided to the pt and the family regarding hospice. Allowed pt to process, and verbalize her thoughts. She has a very supportive family. She is aware all her options will be considered for hospice.
--- NOTE | 2024-03-15 13:52 | TRANSFER ---
Report called to Dorinda ROBBINS. Pt to be transferred via bed after Hospice comes and speaks with the pt and her family.
--- NOTE | 2024-03-15 14:14 | HOSPNOTE ---
Spoke with patient and family and they are in agreement with hospice and the philosophy. Equipment will be ordered and patient will be transported via ambulance. OOH DNR needed on chart. Attending and CM aware.
--- NOTE | 2024-03-15 14:17 | CM ---
Addendum entered by Yue White 03/15/24 16:05:
IMM completed and on the chart. Patient for discharge home tomorrow at noon via ambulance. Transfer forms completed on chart.
Original Note:
Patient now for discharge [facility]. Patient out of hospital DNR form completed and will be placed on chart. CM will complete transfer forms. CM will continue to follow for discharge planning needs.
Plan;home with hospice tomorrow with [facility]
--- NOTE | 2024-03-15 15:19 | PTOTSP ---
Orders received, chart reviewed. Spoke with RN; patient to transition to hospice care tomorrow. Skilled therapy not warranted at this time. Will discharge from caseload.
If needs change, please re-consult.
--- NOTE | 2024-03-15 16:15 | PTCARENOTE ---
Received patient from ICU into room 2120 on comfort measures. VSS, patient AAOX3, able to make needs known. Static overlay in place on bed, patient denies any pain at this time. Lopez in place for end of life care. Patient and family at bedside
oriented to room and call peoples, state no concerns at this time.
[2024-03-15] MEDS: MORPHINE SULFATE 1 MG IV (22:30)
[2024-03-16] MEDS: ROXICODONE 10 MG PO (00:41)
[2024-03-16 07:10] VITALS: BP 123/66
[2024-03-16] MEDS: MORPHINE SULFATE 1 MG IV ×2 (07:47→11:11)
--- NOTE | 2024-03-16 08:52 | W.PN.HOSP.TC ---
Today's Communication/Plan
-
d/c
Assessment / Plan
Assessment / Plan
pt is a 68 year old female
home with hospice today
medical issues'
Shock
metastatic renal cancer
urinary retention
anemia of chronic disease
PRINCESS
hypercalcemia
Code Status: DNR
Anticipated Discharge: Today
Subjective/Interval History
-
Date of Service: March 16, 2024
pt c/o dry lips--just got morphine for abdominal pain
Objective Data
-
Vital Signs:
max temp for 24 hours
03/15/24
11:37
Temp 100.1 F
Vital Signs
Temp Pulse Resp BP Pulse Ox
98.5 F 95 14 113/55 92
03/15/24 23:24 03/15/24 23:24 03/15/24 23:24 03/15/24 23:24 03/15/24 23:24
I&O
03/15/24 03/16/24 03/17/24
06:59 06:59 06:59
Intake Total 4847.7 / 4997.7 2079
Output Total 2175 / 2175 1825 / 1825
Balance 2672.7 / 2822.7 255 / 255
Review of Systems
-
Unable to obtain full review of systems at this time due to: Acuity
Physical Exam
-
General: Well Developed, Well Nourished and Comfortable
HEENT: Normocephalic and Atraumatic; Negative Oxygen
Respiratory: Clear to Auscultation; Negative Wheezes or Rhonchi
Cardiac: Regular Rhythm and S1/S2; Negative Murmur
GI: Soft, Nontender, Nondistended and Normal Bowel Sounds
Genito-urinary: Lopez
Musculoskeletal: No Clubbing, No Cyanosis and No Edema
Skin: Warm
Neuro: Awake
Psych: Calm
[2024-03-16] MEDS: TYLENOL 500 MG PO (09:56)
--- NOTE | 2024-03-16 10:35 | CM ---
Pt for discharge today - home with [facility]
Transport at 1200 - spoke with pts - aware of transport time
Plan - [facility]
--- NOTE | 2024-03-16 12:09 | CHAP ---
Long and fruitful visit with Joi's spouse, Amadeo, and family. Amadeo shared background about Joi, his of 45 years, about their life together, their family, and the difficult journey through the past month, following her diagnosis. Joi
and Amadeo have Zoroastrianism keerthi - we discussed the possibility of a associate professor of history visit once Joi is home on Hospice. Three of their 5 children and a grandson were also present. 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
--- NOTE | 2024-03-16 13:36 | W.DCSUMMARY ---
Discharge Summary
Discharge Data
Date of Admission: 03/14/24
Date of Discharge: 03/16/24
-
Pending Results: No
Hospital Course
Primary care physician : Tiny Howell
Principal Discharge diagnosis : Shock, urinary retention, anemia chronic disease, acute kidney injury, hypercalcemia
Chronic Discharge diagnosis : Metastatic renal cell carcinoma
Hospital Course : Patient was a 68-year-old female with a history of metastatic renal cell carcinoma status post left nephrectomy and newly started on chemotherapy who presented for fever, lethargy, and diaphoresis. Patient underwent left
nephrectomy at [facility] in January. She had metastatic disease to the left pelvis and hip and pelvic floor. First session of chemotherapy was 03/12/2024. Patient became tired in the afternoon on the day of admission and started to nap around 2 PM.
She went to bed around 4 PM and fell into a deeper sleep. Family noted that her breathing changed and she was very still. She attempted to stand but her legs gave out had to be supported by family members. She was incontinent of large amount of
urine at that time. She was profusely diaphoretic and speech was thick and confused. Patient sat on the toilet and passed out became unresponsive. She was brought in for evaluation and treatment. Patient was admitted.
Problem #1: Shock, urinary retention, anemia of chronic disease, acute kidney injury, hypercalcemia. Initially this was thought to be septic shock, she was started on IV fluids and pressors and the patient was admitted to the intensive care unit.
She was started on broad-spectrum antibiotics (Cefepime) and seen in consultation by infectious disease, project management specialist, and oncology. All cultures were no growth to date. White blood cell count on admission was 50,000 and the patient did not receive
G-CSF. Chest x-ray showed atelectasis otherwise negative. CAT scan of the abdomen pelvis showed multiple new soft tissue nodules likely metastatic disease with an increase in the size of the retroperitoneal zully mets, and multiple new omental
mets along with postop seromas. Patient did have a Lopez catheter placed for urinary retention. Patient was also started on IV fluids and creatinine on admission was 1.4 down to 0.9. Patient's hemoglobin on admission was 9.5 which dropped to 6.0.
She did receive 2 units of packed red blood cells with a bump to 11.1 and discharge hemoglobin of 10.9. Uric acid elevated at 7.2.
Alternatively, this could have been a reaction to her chemotherapy. CAT scan seems to show progression of disease. I did speak with the patient's oncologist from [facility] (Dr. Levine) who called me for an update. I did discuss her CAT scan results,
patient's white blood cell count, required need for pressors now off, hemoglobin with transfusion, and uric acid. He told me that the patient had a hard time deciding whether or not to even do chemotherapy versus hospice but elected to try the
treatment. She had only one dose 3 to 4 days prior to admission as mentioned. He was satisfied that that we could not find any source of infection and so he called patient's daughter Tisha to discuss all that I have mentioned to him.
Shortly thereafter, I received a call that the patient wanted to go home on hospice and transition to comfort measures. All active treatments were stopped and the patient was transferred to a [facility] bed with every hour morphine as needed. Patient
has received 2 doses, one last evening and one earlier this morning. Patient and family are in agreement for discharge home with initiation of hospice upon arrival at home.
Problem #2: Metastatic renal cell carcinoma. As above.
Patient is stable for discharge home on hospice at this time. If there are any questions regarding this dictation or her hospital stay, please do not hesitate to call. Our office number is [phone].
Time for discharge 40 minutes.
Important imaging findings :
CT SCAN ABDOMEN/PELVIS IMPRESSION:
1. Post left nephrectomy. As above, there are multiple new soft tissue attenuation nodules inferior to the spleen which most likely represent metastases. There is interval increase in size of previously seen retroperitoneal zully metastases.
There are multiple new omental implants representing metastases.
2. Simple fluid attenuation perisplenic collection measuring up to 9.8 cm in diameter as above, most likely postoperative seroma.
3. Abnormal soft tissue attenuation along the posterior aspect of the nephrectomy bed measuring up to 10.8 cm in diameter as above, metastatic disease versus postoperative hematoma.
Discharge Plan
-
Patient Disposition: Home with Hospice
Discharge Diagnosis/Procedures: Shock, urinary retention, anemia of chronic disease, acute kidney injury, hypercalcemia, metastatic renal cell carcinoma
Condition: Fair
Diet: As tolerated and Regular
Activity: As tolerated
Driving Restrictions: No driving
Bathing Restrictions: None
Other Services: Hospice
Referrals:
Tiny Howell DO [Family Provider] - in less than 1 week
Additional Discharge Medication Instructions: hospice will obtain any needed medications
Prescriptions:
Continued
acetaminophen 500 mg Tablet
500 mg PO Q6HPRN PRN (Reason: mild pain)
Discontinued
docusate sodium [Stool Softener] 100 mg Capsule
100 mg PO DAILYPRN PRN (Reason: constipation)
polyethylene glycol 3350 [Miralax] 17 gram/dose Powder
4 g PO DAILY
oxycodone 5 mg Tablet
10 mg PO Q8HPRN PRN (Reason: moderate to severe pain)
Discharge Orders:
Discharge Patient (As Directed); Ordered 03/16/24
Ordered By: Kristine Dailey
Discharge Date and Time
Discharge Date/Time: 03/16/24 12:37
Print Language: MALTESE
== END 2024-03-16 12:37 | disposition hospice, home (50) | DRG 871 ==
LOC: 2 NORTH 02:28
PROVIDERS: Clinical Nurse Specialist Family Health; Nurse Practitioner Family; ADMITTING PHYSICIAN Hospitalist; ATTENDING PHYSICIAN Internal Medicine; EMERGENCY PHYSICIAN Emergency Medicine; FAMILY PHYSICIAN Family Medicine; OTHER PHYSICIAN Internal Medicine Critical Care Medicine; OTHER PHYSICIAN Internal Medicine Hematology & Oncology; OTHER PHYSICIAN Internal Medicine Infectious Disease
PROC: 30233N1 Transfusion of Nonautologous Red Blood Cells into Peripheral Vein, Percutaneous Approach (ICD-10-PCS; 2024-03-14)
DX: A41.9 Sepsis, unspecified organism (principal); G92.8 Other toxic encephalopathy; R57.8 Other shock; R65.21 Severe sepsis with septic shock; C64.9 Malignant neoplasm of unspecified kidney, except renal pelvis; N17.9 Acute kidney failure, unspecified; C79.89 Secondary malignant neoplasm of other specified sites; Z66 Do not resuscitate; D63.8 Anemia in other chronic diseases classified elsewhere; E83.52 Hypercalcemia; Z11.52 Encounter for screening for COVID-19
CPT/HCPCS: 70450; 71046; 74176; 80053; 81003; 81015; 82607; 82728; 82746; 83540; 83550; 83605; 83735; 84100; 84443; 84484; 84550; 85025; 85027; 85610; 85730; 86850; 86900; 86901; 86920; 87040; 87086; 87502; 87811; 93005; 94760; 96361; 96365; 96366; 96375; 96376; 99285; P9016; P9047